=== PATIENT | male | born 1940 | race Caucasian/White ===

== ENCOUNTER 2018-09-11 08:14 | Day surgery (SDC) | payer OTHER, MEDICARE ==
[~2018-09-11 08:14] MED LIST: ACET500 PO; ALBU90OI INH; ASCO500 PO; Aqua Care71 GM TOP; CALCA400CH PO; CALCIUM 500 +1 EAC3 PO; CHOL10002 PO; CYAN500 PO; DOFE250 PO; DULO60 PO; Desyrel150 MG PO; ELIQUIS5 MG PO; FERROUS SULFATE PO; FISH OIL 1,0001 EAC1 PO; GABA600 PO; HYDCHL12.5 PO; HYDSUL200 PO; LEFL20 PO; LEVSOD50 PO; LOSA50 PO; METO50ER PO; OXYB5 PO; OXYC10ER PO; Omeprazole20 M1 PO; POTCHL10ER PO; POTCHL20ER PO; SIMV10 PO; SPIR25 PO; STRIVERDI RESPIM4 GM INH; SULF500A PO; THIA100 PO; TRIA15CR3 TOP; XARELTO15 MG PO
--- NOTE | 2018-09-11 08:59 | NUR ---
History, Chart, Medications and Allergies reviewed before start of procedure. Lungs clear T/O to Auscultation. Patient confirms NPO status and agrees with scheduled surgery. Patient states colon prep results clear. Patient States Post-Procedure ride home has been arranged.
--- NOTE | 2018-09-11 09:27 | NUR ---
09/11/18 0927 Lance Shay Bite Block Placed3-LEAD EKG REVIEWED WITH PHYSICIAN PRIOR TO START OF PROCEDURE.Patient to ENDO 1History, Chart, Medications and Allergies reviewed before start of procedure.MONITOR INTACT WITH CONTINUOUS PULSE OXIMETRY AND INTERMITTENT BP. O2 VIA N/C INTACT THROUGHOUT SEDATION/PROCEDURE.See Anesthesia record.
--- NOTE | 2018-09-11 12:04 | NUR ---
Discharge instructions reviewed with patient. Patient verbalizes understanding. Copy given to patient to take home. Patient States Post-Procedure ride home has been arranged. Discharged via wheelchair to private car for ride home.
== END 2018-09-11 23:35 | disposition home or self-care (01) ==
LOC: ORSCMMR 08:14 → ORD 10:00 → ORSCMMR 23:35
PROVIDERS: Internal Medicine Gastroenterology
PROC: 0DBE8ZX Excision of Large Intestine, Via Natural or Artificial Opening Endoscopic, Diagnostic (ICD-10-PCS; principal; 2018-09-11 10:00)
PROC: 0DBL8ZX Excision of Transverse Colon, Via Natural or Artificial Opening Endoscopic, Diagnostic (ICD-10-PCS; principal; 2018-09-11 10:00)
PROC: 0DB98ZX Excision of Duodenum, Via Natural or Artificial Opening Endoscopic, Diagnostic (ICD-10-PCS; principal; 2018-09-11 10:00)
DX: K62.5 Hemorrhage of anus and rectum (principal); K92.1 Melena; R11.0 Nausea; K31.9 Disease of stomach and duodenum, unspecified; D12.3 Benign neoplasm of transverse colon; K31.7 Polyp of stomach and duodenum; K22.8 Other specified diseases of esophagus; K44.9 Diaphragmatic hernia without obstruction or gangrene; Z86.010 Personal history of colon polyps; K57.30 Diverticulosis of large intestine without perforation or abscess without bleeding; K64.4 Residual hemorrhoidal skin tags; K64.8 Other hemorrhoids; I10 Essential (primary) hypertension; I48.91 Unspecified atrial fibrillation; Z79.01 Long term (current) use of anticoagulants; J44.9 Chronic obstructive pulmonary disease, unspecified; Z86.73 Personal history of transient ischemic attack (TIA), and cerebral infarction without residual deficits; Z79.899 Other long term (current) drug therapy
CPT/HCPCS: 88305; 88342; J1980; J7120

== ENCOUNTER 2018-10-04 14:33 | Observation (INO) | payer MEDICARE ==
[~2018-10-04] VITALS: Ht 175.3 cm; Wt 76.1 kg
[2018-10-04 15:36] LABS: BASOPHILS ABSOLUTE AUTO 0.12 K/mm3 (0.00-0.23); BASOPHILS PERCENT AUTO 1 % (0-2); EOSINOPHILS ABSOLUTE AUTO 0.16 K/mm3 (0.00-0.68); EOSINOPHILS PERCENT AUTO 1 % (0-6); Hematocrit 47.1 % (37.0-53.0); Hemoglobin 14.8 g/dL (13.5-17.5); IMMATURE GRAN ABSOLUTE AUTO 0.05 K/mm3 (0.00-0.10); IMMATURE GRAN PERCENT AUTO 0 % (0-1); LYMPHOCYTES ABSOLUTE AUTO 1.38 K/mm3 (0.84-5.20); LYMPHOCYTES PERCENT AUTO 10 % (21-46); MONOCYTES ABSOLUTE AUTO 1.58 K/mm3 (0.16-1.47); MONOCYTES PERCENT AUTO 12 % (4-13); Mean Corpuscular HGB 32.5 pg (26.0-34.0); Mean Corpuscular HGB Conc 31.4 g/dL (31.5-36.5); Mean Corpuscular Volume 103 fL (80-100); NEUTROPHILS ABSOLUTE AUTO 10.31 K/mm3 (1.96-9.15); NEUTROPHILS PERCENT AUTO 76 % (41-73); Platelet Count 125 K/mm3 (150-400); RDW Coefficient Variation 13.7 % (11.7-14.2); RDW Standard Deviation 52.7 fL (35.1-46.3); Red Blood Cell Count 4.56 M/mm3 (4.30-5.90)
[2018-10-04 15:48] LABS: Troponin I <0.015 ng/mL (0.000-0.040)
[2018-10-04] MEDS ORDERED: GABA300 PO (15:59)
[2018-10-04] MEDS ORDERED: OMEPRAZOLE MAGN20 MG PO (16:00)
[2018-10-04] MEDS ORDERED: XARELTO15 MG PO (16:01)
[2018-10-04] MEDS ORDERED: SILD50TA PO (16:02)
[2018-10-04 16:22] LABS: Alanine Aminotransfer (ALT/SGP 41 U/L (12-78); Albumin, Blood 4.1 g/dL (3.4-5.0); Albumin/Globulin Ratio 1.1 (0.8-1.8); Alk Phos 114 U/L (50-136); Anion Gap 9 mmol/L (6-16); Aspartate Aminotrans (AST/SGOT 52 U/L (12-37); Bilirubin, Total 1.6 mg/dL (0.1-1.0); Blood Urea Nitrogen 22 mg/dL (8-24); Bun/Creatinine Ratio 20.2 (12.0-20.0); CO2, Blood 24 mmol/L (21-32); Calcium, Blood 8.6 mg/dL (8.5-10.1); Chloride, Blood 105 mmol/L (98-108); Creatinine, Blood 1.09 mg/dL (0.60-1.20); Globulin, Blood 3.9 g/dL (2.2-4.0); Glomerular Filtration Rate >60 (60-); Glucose, Blood 86 mg/dL (70-99); Potassium, Blood 3.8 mmol/L (3.5-5.5); Sodium, Blood 138 mmol/L (136-145)
--- NOTE | 2018-10-05 00:54 | NUR ---
IV SITE PT HAS IV TO R FA, 20 GA THAT PLACEMENT WAS NOT DOCUMENTED. WNL
--- NOTE | 2018-10-05 06:37 | NUR ---
SHIFT SUMMARY PT ADMITTED FOR CHEST PAIN. FULL CODE. NPO EXCEPT MEDS AND ICE CHIPS. BEDREST. TELE A-FIB, PVC AT A RATE OF 88 PER STACKER AND SORTER OPERATOR. PT NOTED TO HAVE 1 6 BEAT RUN OF V-TACH JUST NOW. ANTHONY, CALLED TO GET LOVENOX DC'D. 18G IV TO L AC AND 20 G IV TO R HAND. MEDS WHOLE. 2 L O2 NC NOT HIS BASELINE. PACEMAKER-BIOMETRIC INTEROGATOR. HISTORY OF A-FIB AND SICK SINUS SYNDROME. HX OF HIATAL HERNIA WITH CT SCAN SHOWEING WORSENING PER REPORT. BP RUNS LOW. 1 PERSON STANDBY ASSIST WITH CANE. PT CONT TO HAVE C/O MENDEZ AND CP THAT THE PT SAID DID NOT IMPROVE OR WORSEN SO FAR THIS SHIFT. PT DID APPEAR TO SLEEP COMFORTABLY FOLLOWING ADMINISTRATION OF NIGHT MEDICATIONS. NO APPARENT SIGNS OF ACUTE DISTRESS. ABLE TO MAKE NEEDS KNOWN AND CALL LIGHT IN REACH.
[2018-10-05 10:22] LABS: Bun/Creatinine Ratio 18.3 (12.0-20.0); Calcium, Blood 8.3 mg/dL (8.5-10.1); Creatinine, Blood 1.26 mg/dL (0.60-1.20); Potassium, Blood 3.2 mmol/L (3.5-5.5)
[2018-10-05 10:53] LABS: BASOPHILS ABSOLUTE AUTO 0.07 K/mm3 (0.00-0.23); BASOPHILS PERCENT AUTO 1 % (0-2); EOSINOPHILS ABSOLUTE AUTO 0.07 K/mm3 (0.00-0.68); EOSINOPHILS PERCENT AUTO 1 % (0-6); Hematocrit 37.4 % (37.0-53.0); IMMATURE GRAN ABSOLUTE AUTO 0.03 K/mm3 (0.00-0.10); IMMATURE GRAN PERCENT AUTO 0 % (0-1); LYMPHOCYTES ABSOLUTE AUTO 1.45 K/mm3 (0.84-5.20); LYMPHOCYTES PERCENT AUTO 21 % (21-46); MONOCYTES ABSOLUTE AUTO 1.01 K/mm3 (0.16-1.47); MONOCYTES PERCENT AUTO 14 % (4-13); Mean Corpuscular HGB 31.7 pg (26.0-34.0); Mean Corpuscular HGB Conc 32.1 g/dL (31.5-36.5); Mean Platelet Volume 12.9 fL (9.1-12.4); NEUTROPHILS ABSOLUTE AUTO 4.43 K/mm3 (1.96-9.15); NEUTROPHILS PERCENT AUTO 63 % (41-73); Platelet Count 90 K/mm3 (150-400); RDW Coefficient Variation 13.6 % (11.7-14.2); RDW Standard Deviation 49.4 fL (35.1-46.3); Red Blood Cell Count 3.79 M/mm3 (4.30-5.90); White Blood Cell Count 7.06 K/mm3 (4.00-11.30)
[2018-10-05 11:06] LABS: Mean Corpuscular Volume 99 fL (80-100)
--- NOTE | 2018-10-05 13:31 | NUR ---
Pt gave consent for care to nursing information systems coordinator Sydni Kim for 10/06/18.
--- NOTE | 2018-10-05 13:59 | NUR ---
PATIENT GAVE THIS STUDENT NURSE PERMISSION TO VIEW CHART AND PARTICIPATE IN THEIR CARE
--- NOTE | 2018-10-05 18:20 | NUR ---
SUMMARY PT SITTIN UP IN BED EATING HIS DINNER, SPOUSE IS AT THE BEDSIDE, PT HAD THE RESTING PORTION OF THE STRESS TEST TODAY AND WILL HAVE THE STRESS PORTION TOMORROW, PT HAS BEEN MED PER EMAR FOR PAIN, PT IS INDEPENDENT IN THE ROOM, PLEASANT AND COOPERATIVE WITH CARE, VSS, NO ACUTE CHANGES, WILL CONT TO MONITOR
--- NOTE | 2018-10-05 22:38 | NUR ---
10/05/182054 RECHECKED BP PRIOR BP WAS LOW PER PROFESSOR OF POLITICAL SCIENCE. BP 104/80 NOW.
[2018-10-06 05:47] LABS: Anion Gap 10 mmol/L (6-16); Blood Urea Nitrogen 32 mg/dL (8-24); Bun/Creatinine Ratio 17.4 (12.0-20.0); CO2, Blood 25 mmol/L (21-32); Calcium, Blood 8.2 mg/dL (8.5-10.1); Chloride, Blood 104 mmol/L (98-108); Creatinine, Blood 1.84 mg/dL (0.60-1.20); Glomerular Filtration Rate 38 (60-); Glucose, Blood 97 mg/dL (70-99); Phosphorus, Blood 2.8 mg/dL (2.5-4.9); Potassium, Blood 3.2 mmol/L (3.5-5.5); Sodium, Blood 139 mmol/L (136-145)
--- NOTE | 2018-10-06 07:27 | NUR ---
10/06/18 0615 VITALS STABLE THIS AM. MEDICATED FOR PAIN IN HEAD, NECK, CHEST AND BACK THIS SHIFT. STATES HE HAS CHRONIC DISCOMFORT. SLEPT FAIRLY WELL THIS SHIFT.
--- NOTE | 2018-10-06 18:37 | NUR ---
SUMMARY PT IS A/O X4, PLEASANT AFFECT. HE HAS BEEN HAVING ONGOING CHEST, L JAW, BACK & H/A. HX CHR AFIB, SSS-PACEMAKER. HE IS HAD 2ND PORTION STRESS TEST THIS AFTERNOON. DR HAMPTON STATE WILL HAVE COMPLETE RESULTS OF TEST IN AM & REVIEW WITH PT/, WILL MX PT OVERNITE. TELE HAS BEEN PACED WITH UNDERLYING AFIB 60'S-70'S. HAVE GIVEN OXYCODONE & TYLENOL FOR PAIN RELIEF/CONTROL. K+ LOW 3.2, ORDER INCREASE IN SUPPLEMENT & STOP HCTZ. GFR 38, DR GIVE 500 ML NS @ 75 ML/HR.
--- NOTE | 2018-10-07 02:12 | NUR ---
ASSUMED CARE OF PATIENT AT APPROXIMATELY [address] RN. PATIENT ALERT AND ORIENTED X4; PATIENT REPORTS HEADACHE AT SHIFT CHANGE; REQUESTS TYELONOL AND OXYCODONE; PATIENT ASLEEP AFTERWARDS. PATIENT DENIES NUMBNESS, TINGLING, DIZZINESS OR NAUSEA. 100% PACED W/ AFIB W/ MISSED SENSING ON TELE; OXYGEN SATURATION ABOVE 90% ON 2LPM VIA NC (PRN). BAG OF NS AT 75 INFUSED. PIV S/L. PATIENT SBA TO BATHROOM. PATIENT CURRENTLY SLEEPING IN BED; CALL LIGHT IN REACH; BED IN LOWEST POSISITON; WILL CONTINUE TO MONITOR AND ASSESS UNTIL END OF SHIFT.
[2018-10-07 05:23] LABS: BASOPHILS ABSOLUTE AUTO 0.07 K/mm3 (0.00-0.23); BASOPHILS PERCENT AUTO 1 % (0-2); EOSINOPHILS ABSOLUTE AUTO 0.35 K/mm3 (0.00-0.68); EOSINOPHILS PERCENT AUTO 7 % (0-6); Hematocrit 34.3 % (37.0-53.0); IMMATURE GRAN ABSOLUTE AUTO 0.02 K/mm3 (0.00-0.10); IMMATURE GRAN PERCENT AUTO 0 % (0-1); LYMPHOCYTES ABSOLUTE AUTO 1.46 K/mm3 (0.84-5.20); LYMPHOCYTES PERCENT AUTO 29 % (21-46); MONOCYTES PERCENT AUTO 16 % (4-13); Mean Corpuscular HGB 31.9 pg (26.0-34.0); Mean Corpuscular HGB Conc 32.1 g/dL (31.5-36.5); Mean Corpuscular Volume 99 fL (80-100); Mean Platelet Volume 12.7 fL (9.1-12.4); NEUTROPHILS ABSOLUTE AUTO 2.29 K/mm3 (1.96-9.15); NEUTROPHILS PERCENT AUTO 46 % (41-73); Platelet Count 86 K/mm3 (150-400); RDW Coefficient Variation 13.7 % (11.7-14.2); RDW Standard Deviation 49.9 fL (35.1-46.3); Red Blood Cell Count 3.45 M/mm3 (4.30-5.90); White Blood Cell Count 4.99 K/mm3 (4.00-11.30)
[2018-10-07 06:04] LABS: Albumin, Blood 2.9 g/dL (3.4-5.0); Anion Gap 8 mmol/L (6-16); Blood Urea Nitrogen 32 mg/dL (8-24); Bun/Creatinine Ratio 20.1 (12.0-20.0); CO2, Blood 25 mmol/L (21-32); Calcium, Blood 8.5 mg/dL (8.5-10.1); Chloride, Blood 105 mmol/L (98-108); Creatinine, Blood 1.59 mg/dL (0.60-1.20); Glomerular Filtration Rate 45 (60-); Glucose, Blood 86 mg/dL (70-99); Phosphorus, Blood 3.4 mg/dL (2.5-4.9); Potassium, Blood 3.8 mmol/L (3.5-5.5); Sodium, Blood 138 mmol/L (136-145)
--- NOTE | 2018-10-07 06:26 | NUR ---
NO ACUTE CHANGES TO REPORT. PATIENT SLEPT ABOUT SEVEN HOURS LAST NIGHT. WILL CONTINUE TO MONITOR AND ASSESS UNTIL END OF SHIFT.
--- NOTE | 2018-10-07 12:10 | NUR ---
DEVICE INTERROGATION DONE PER ORDER TO EVALUATE VENTRICULAR SENSING.EGM SHOWS VENTRICULAR PACED WITH TRIGEMINAL PVC'S. ADEQUATE BATTERY STATUS. NORMAL VENTRICULAR CAPTURE. NO R WAVE AT VVI RATE 30 BPM AND AUTO SENSITIVITY. CAPTURE THRESHOLD 1.3V@.4MS. HISTOGRAMS SHOW Tin Stacker 64%.VENTRICULAR HIGH RATE EPISODES:5. PROGRAMMING CHANGES MADE WITH [employer] REP SUPPORT. VENTRICULAR SENSITIVITY FROM "AUTO" TO 2.5mV. VENTRICULAR AMPLITUDE TO 4.0V. REUTRNED WITH JERRY JIMENEZ AT 1315 FOR FURTHER INTERROGATION. R WAVE 1.6mV. PROGRAMMED VENTRICULAR SENSITIVITY TO 0.5Mv. EGM SHOWS VENTRICULAR SENSING RATE 65-90 BPM IN ATRIAL FIB WITH OCCASIONAL PVC'S.
[2018-10-07 12:25] LABS: PCO2 Arterial 39.6 mmHg (35-45); PO2 Arterial 82.5 mmHg (80-100); pH Blood Arterial 7.39 (7.35-7.45)
--- NOTE | 2018-10-07 17:52 | NUR ---
PATIENT HAS HAD NO COMPLAINTS THIS SHIFT. HE IS PLEASANT AND COOPERATIVE WITH ALL CARES. HE IS ABLE TO ALBULATE TO THE RESTROOM WITH NO ASSISTANCE. NO ISSUES THIS SHIFT.
--- NOTE | 2018-10-08 03:34 | NUR ---
SHIFT SUMMARY NO APPARENT ACUTE CHANGES NOTED FOR PT SO FAR THIS SHIFT. THE PT IS TO HAVE A PACEMAKER IMPLANT F/U DEVICE CHECKS NOTED FAILURE TO CAPTURE, MISFIRING PACEMAKER COMPLICATIONS. PACER F/U WITH REPORGRAMMING-DUAL. THE PT IS READY TO GO HOME AND IS HOPING TO BE ABLE TO GET SOME ANSWERS AND ABLE TO DISCHARGE TODAY. NO C/O CP SO FAR THIS SHIFT. THAT PT HAS APPEARED TO SLEEP COMFORTABLY THROUGHOUT THE NIGHT WITH NO COMPLAINTS AND NO APPARENT SIGNS OF ACUTE DISTRESS. ABLE TO MAKE NEEDS KNOWN AND CALL LIGHT IN REACH.
[2018-10-08 05:24] LABS: BASOPHILS ABSOLUTE AUTO 0.08 K/mm3 (0.00-0.23); BASOPHILS PERCENT AUTO 2 % (0-2); EOSINOPHILS ABSOLUTE AUTO 0.33 K/mm3 (0.00-0.68); EOSINOPHILS PERCENT AUTO 6 % (0-6); Hematocrit 35.4 % (37.0-53.0); Hemoglobin 11.2 g/dL (13.5-17.5); IMMATURE GRAN ABSOLUTE AUTO 0.02 K/mm3 (0.00-0.10); IMMATURE GRAN PERCENT AUTO 0 % (0-1); LYMPHOCYTES PERCENT AUTO 26 % (21-46); MONOCYTES ABSOLUTE AUTO 0.75 K/mm3 (0.16-1.47); MONOCYTES PERCENT AUTO 14 % (4-13); Mean Corpuscular HGB 31.7 pg (26.0-34.0); Mean Corpuscular HGB Conc 31.6 g/dL (31.5-36.5); Mean Corpuscular Volume 100 fL (80-100); Mean Platelet Volume 12.5 fL (9.1-12.4); NEUTROPHILS ABSOLUTE AUTO 2.72 K/mm3 (1.96-9.15); NEUTROPHILS PERCENT AUTO 51 % (41-73); Platelet Count 104 K/mm3 (150-400); RDW Coefficient Variation 13.8 % (11.7-14.2); RDW Standard Deviation 50.5 fL (35.1-46.3); Red Blood Cell Count 3.53 M/mm3 (4.30-5.90)
[2018-10-08 06:00] LABS: Anion Gap 8 mmol/L (6-16); Blood Urea Nitrogen 29 mg/dL (8-24); Bun/Creatinine Ratio 21.5 (12.0-20.0); CO2, Blood 25 mmol/L (21-32); Calcium, Blood 8.8 mg/dL (8.5-10.1); Chloride, Blood 113 mmol/L (98-108); Creatinine, Blood 1.35 mg/dL (0.60-1.20); Glomerular Filtration Rate 55 (60-); Glucose, Blood 89 mg/dL (70-99); Potassium, Blood 3.9 mmol/L (3.5-5.5); Sodium, Blood 146 mmol/L (136-145)
== END 2018-10-08 18:30 | disposition home or self-care (01) ==
LOC: ER 14:33 → MEDS 14:34
PROVIDERS: Emergency Medicine; Internal Medicine; ADMIT Hospitalist
DX: R07.89 Other chest pain (principal); I48.91 Unspecified atrial fibrillation; T82.119A Breakdown (mechanical) of unspecified cardiac electronic device, initial encounter; E03.9 Hypothyroidism, unspecified; I10 Essential (primary) hypertension; F32.9 Major depressive disorder, single episode, unspecified; J44.9 Chronic obstructive pulmonary disease, unspecified; K44.9 Diaphragmatic hernia without obstruction or gangrene; E87.6 Hypokalemia; N28.9 Disorder of kidney and ureter, unspecified; K21.9 Gastro-esophageal reflux disease without esophagitis; I95.9 Hypotension, unspecified; Z87.891 Personal history of nicotine dependence; Z88.0 Allergy status to penicillin; Z88.4 Allergy status to anesthetic agent; Z79.899 Other long term (current) drug therapy
CPT/HCPCS: 36415; 36600; 71046; 71275; 74175; 78452; 80048; 80053; 80069; 82803; 83735; 83880; 84484; 85025; 85651; 93005; 93010; 93017; 93280; 94640; 94760; 94761; 96360; 96361; 99285-25; A9500; G0378; J0706; J2785; J7030; J7040; Q9967

== ENCOUNTER 2019-11-10 20:27 | Emergency (ER) | payer OTHER, MEDICARE ==
[~2019-11-10] VITALS: Ht 175.3 cm; Wt 83.9 kg
[~2019-11-10 20:27] MED LIST changes: +GABA300 PO; +OMEPRAZOLE MAGN20 MG PO; +SILD50TA PO
[2019-11-10 20:43] LABS: BASOPHILS ABSOLUTE AUTO 0.09 K/mm3 (0.00-0.23); BASOPHILS PERCENT AUTO 1 % (0-2); EOSINOPHILS ABSOLUTE AUTO 0.38 K/mm3 (0.00-0.68); EOSINOPHILS PERCENT AUTO 5 % (0-6); Hematocrit 41.9 % (37.0-53.0); IMMATURE GRAN ABSOLUTE AUTO 0.02 K/mm3 (0.00-0.10); IMMATURE GRAN PERCENT AUTO 0 % (0-1); LYMPHOCYTES ABSOLUTE AUTO 1.98 K/mm3 (0.84-5.20); LYMPHOCYTES PERCENT AUTO 24 % (21-46); MONOCYTES PERCENT AUTO 15 % (4-13); Mean Corpuscular Volume 100 fL (80-100); Mean Platelet Volume 11.2 fL (9.1-12.4); NEUTROPHILS ABSOLUTE AUTO 4.55 K/mm3 (1.96-9.15); NEUTROPHILS PERCENT AUTO 55 % (41-73); Platelet Count 184 K/mm3 (150-400); RDW Coefficient Variation 14.2 % (11.7-14.2); RDW Standard Deviation 52.2 fL (35.1-46.3); Red Blood Cell Count 4.19 M/mm3 (4.30-5.90); White Blood Cell Count 8.22 K/mm3 (4.00-11.30)
[2019-11-10 21:04] LABS: Alanine Aminotransfer (ALT/SGP 16 U/L (12-78); Albumin, Blood 3.8 g/dL (3.4-5.0); Albumin/Globulin Ratio 1.2 (0.8-1.8); Alk Phos 132 U/L (50-136); Anion Gap 1 mmol/L (6-16); Aspartate Aminotrans (AST/SGOT 23 U/L (12-37); Bilirubin, Total 0.5 mg/dL (0.1-1.0); Blood Urea Nitrogen 31 mg/dL (8-24); Bun/Creatinine Ratio 15.7 (12.0-20.0); CO2, Blood 29 mmol/L (21-32); Calcium, Blood 8.8 mg/dL (8.5-10.1); Chloride, Blood 109 mmol/L (98-108); Creatinine, Blood 1.98 mg/dL (0.60-1.20); Globulin, Blood 3.2 g/dL (2.2-4.0); Glomerular Filtration Rate 35 (60-); Glucose, Blood 59 mg/dL (70-99); Potassium, Blood 4.5 mmol/L (3.5-5.5); Sodium, Blood 139 mmol/L (136-145); Troponin I <0.015 ng/mL (0.000-0.040)
[2019-11-11] MEDS ORDERED: Carbidopa-Levo1 EACH (00:20)
[2019-11-11] MEDS ORDERED: ARANESP (00:21)
== END 2019-11-11 03:09 | disposition home or self-care (01) ==
LOC: ER 20:27
PROVIDERS: Physician Assistant
DX: R07.9 Chest pain, unspecified (principal); I48.91 Unspecified atrial fibrillation; J44.9 Chronic obstructive pulmonary disease, unspecified; K21.9 Gastro-esophageal reflux disease without esophagitis; Z88.8 Allergy status to other drugs, medicaments and biological substances; Z88.0 Allergy status to penicillin; Z79.899 Other long term (current) drug therapy; Z79.51 Long term (current) use of inhaled steroids; Z87.891 Personal history of nicotine dependence
CPT/HCPCS: 36415; 71046; 80053; 84484; 85025; 93005; 93010; 99285-25

== ENCOUNTER 2021-08-23 14:27 | Emergency (ER) | payer OTHER ==
[~2021-08-23] VITALS: Ht 175.3 cm; Wt 81.7 kg
[~2021-08-23 14:27] MED LIST changes: +ARANESP; +Carbidopa-Levo1 EACH
[2021-08-23 15:36] LABS: BASOPHILS ABSOLUTE AUTO 0.05 K/mm3 (0.00-0.23); BASOPHILS PERCENT AUTO 1 % (0-2); EOSINOPHILS ABSOLUTE AUTO 0.08 K/mm3 (0.00-0.68); EOSINOPHILS PERCENT AUTO 1 % (0-6); Hemoglobin 14.1 g/dL (13.5-17.5); IMMATURE GRAN ABSOLUTE AUTO 0.01 K/mm3 (0.00-0.10); IMMATURE GRAN PERCENT AUTO 0 % (0-1); LYMPHOCYTES ABSOLUTE AUTO 1.25 K/mm3 (0.84-5.20); LYMPHOCYTES PERCENT AUTO 21 % (21-46); MONOCYTES ABSOLUTE AUTO 0.98 K/mm3 (0.16-1.47); MONOCYTES PERCENT AUTO 16 % (4-13); Mean Corpuscular HGB 29.6 pg (26.0-34.0); Mean Corpuscular HGB Conc 31.3 g/dL (31.5-36.5); Mean Corpuscular Volume 94 fL (80-100); Mean Platelet Volume 12.3 fL (9.1-12.4); NEUTROPHILS ABSOLUTE AUTO 3.62 K/mm3 (1.96-9.15); NEUTROPHILS PERCENT AUTO 60 % (41-73); Platelet Count 125 K/mm3 (150-400); RDW Coefficient Variation 14.7 % (11.7-14.2); RDW Standard Deviation 51.4 fL (35.1-46.3); Red Blood Cell Count 4.77 M/mm3 (4.30-5.90); White Blood Cell Count 5.99 K/mm3 (4.00-11.30)
[2021-08-23 16:00] LABS: Albumin, Blood 3.7 g/dL (3.4-5.0); Albumin/Globulin Ratio 1.3 (0.8-1.8); Bun/Creatinine Ratio 14.8 (12.0-20.0); Creatinine, Blood 1.42 mg/dL (0.60-1.20); Globulin, Blood 2.8 g/dL (2.2-4.0); Total Protein, Blood 6.5 g/dL (6.4-8.2)
== END 2021-08-23 19:45 | disposition home or self-care (01) ==
LOC: ER 14:27
PROVIDERS: Physician Assistant
DX: U07.1 COVID-19 (principal); I48.91 Unspecified atrial fibrillation; J44.9 Chronic obstructive pulmonary disease, unspecified; I10 Essential (primary) hypertension; Z88.0 Allergy status to penicillin; Z88.8 Allergy status to other drugs, medicaments and biological substances; Z79.899 Other long term (current) drug therapy; Z87.891 Personal history of nicotine dependence
CPT/HCPCS: 36415; 71046; 80053; 85025; 99285-25

== ENCOUNTER 2022-10-11 16:57 | Observation (INO) | payer OTHER ==
[~2022-10-11] VITALS: Ht 177.8 cm; Wt 77.6 kg
[2022-10-11 17:29] LABS: BASOPHILS PERCENT AUTO 2 % (0-2); EOSINOPHILS ABSOLUTE AUTO 0.55 K/mm3 (0.00-0.68); EOSINOPHILS PERCENT AUTO 10 % (0-6); Hematocrit 37.5 % (37.0-53.0); Hemoglobin 12.1 g/dL (13.5-17.5); IMMATURE GRAN ABSOLUTE AUTO 0.02 K/mm3 (0.00-0.10); IMMATURE GRAN PERCENT AUTO 0 % (0-1); LYMPHOCYTES ABSOLUTE AUTO 1.36 K/mm3 (0.84-5.20); LYMPHOCYTES PERCENT AUTO 25 % (21-46); MONOCYTES ABSOLUTE AUTO 0.86 K/mm3 (0.16-1.47); MONOCYTES PERCENT AUTO 16 % (4-13); Mean Corpuscular HGB 30.6 pg (26.0-34.0); Mean Corpuscular HGB Conc 32.3 g/dL (31.5-36.5); Mean Corpuscular Volume 95 fL (80-100); NEUTROPHILS ABSOLUTE AUTO 2.58 K/mm3 (1.96-9.15); NEUTROPHILS PERCENT AUTO 47 % (41-73); Platelet Count 146 K/mm3 (150-400); RDW Standard Deviation 51.8 fL (35.1-46.3); Red Blood Cell Count 3.95 M/mm3 (4.30-5.90); White Blood Cell Count 5.47 K/mm3 (4.00-11.30)
[2022-10-11 17:53] LABS: Albumin, Blood 3.6 g/dL (3.4-5.0); Albumin/Globulin Ratio 1.4 (0.8-1.8); Bilirubin, Total 0.9 mg/dL (0.1-1.0); Bun/Creatinine Ratio 14.3 (12.0-20.0); Calcium, Blood 9.4 mg/dL (8.5-10.1); Creatinine, Blood 1.26 mg/dL (0.60-1.20); Globulin, Blood 2.6 g/dL (2.2-4.0); Potassium, Blood 3.9 mmol/L (3.5-5.5); Total Protein, Blood 6.2 g/dL (6.4-8.2)
[2022-10-11 17:54] LABS: Source, Urine Clean Catch
[2022-10-11 17:58] LABS: Appearance, Urine Clear (Clear); Bilirubin, Urine Neg (Neg); Blood, Urine Neg (Neg); Color, Urine Yellow (P-Yellow); Glucose Qualitative, Urine Neg (Neg); Ketones, Urine Neg (Neg); Leukocyte Esterase, Urine 1+ (Neg); Nitrite, Urine Neg (Neg); Protein, Urine Neg (Neg); Urobilinogen, Urine NORM (Normal); pH, Urine 6.5 (5.0-8.0)
[2022-10-11 18:07] LABS: Bacteria Few /hpf; Red Blood Cells, Urine 0-2 /hpf (0-2); Squamous Epithelial Cells Rare /hpf (Few)
[2022-10-11] MEDS ORDERED: FAMO40 PO (20:27)
[2022-10-11] MEDS ORDERED: B-1100 M1 PO (20:27)
[2022-10-11] MEDS ORDERED: BUPR150ER PO (20:28)
[2022-10-11] MEDS ORDERED: ZADITOR5 M1 OP (20:30)
[2022-10-11] MEDS ORDERED: LIDO700A20 TOP (20:31)
[2022-10-11] MEDS ORDERED: CLOT10 MT (20:31)
[2022-10-11] MEDS ORDERED: FURO20 PO (20:39)
[2022-10-12 01:03] LABS: BASOPHILS ABSOLUTE AUTO 0.08 K/mm3 (0.00-0.23); BASOPHILS PERCENT AUTO 2 % (0-2); EOSINOPHILS ABSOLUTE AUTO 0.41 K/mm3 (0.00-0.68); EOSINOPHILS PERCENT AUTO 9 % (0-6); Hematocrit 36.8 % (37.0-53.0); Hemoglobin 11.7 g/dL (13.5-17.5); IMMATURE GRAN ABSOLUTE AUTO 0.01 K/mm3 (0.00-0.10); IMMATURE GRAN PERCENT AUTO 0 % (0-1); LYMPHOCYTES ABSOLUTE AUTO 1.31 K/mm3 (0.84-5.20); LYMPHOCYTES PERCENT AUTO 28 % (21-46); MONOCYTES ABSOLUTE AUTO 0.89 K/mm3 (0.16-1.47); MONOCYTES PERCENT AUTO 19 % (4-13); Mean Corpuscular HGB 30.1 pg (26.0-34.0); Mean Corpuscular HGB Conc 31.8 g/dL (31.5-36.5); Mean Corpuscular Volume 95 fL (80-100); Mean Platelet Volume 11.9 fL (9.1-12.4); NEUTROPHILS ABSOLUTE AUTO 2.03 K/mm3 (1.96-9.15); NEUTROPHILS PERCENT AUTO 43 % (41-73); Platelet Count 123 K/mm3 (150-400); RDW Coefficient Variation 14.9 % (11.7-14.2); RDW Standard Deviation 51.8 fL (35.1-46.3); Red Blood Cell Count 3.89 M/mm3 (4.30-5.90); White Blood Cell Count 4.73 K/mm3 (4.00-11.30)
[2022-10-12 01:18] LABS: Albumin, Blood 3.3 g/dL (3.4-5.0); Albumin/Globulin Ratio 1.3 (0.8-1.8); Bilirubin, Total 0.7 mg/dL (0.1-1.0); Calcium, Blood 8.9 mg/dL (8.5-10.1); Creatinine, Blood 1.43 mg/dL (0.60-1.20); Globulin, Blood 2.5 g/dL (2.2-4.0); Potassium, Blood 3.5 mmol/L (3.5-5.5); Total Protein, Blood 5.8 g/dL (6.4-8.2)
--- NOTE | 2022-10-12 06:28 | NUR ---
RECIEVED PATIENT FROM THE ED ALERT AND ORIENTED X4, COOPERATIVE WITH CARE. LUNGS DIM WITH CRACKLES OVER RLL. TRACE EDEMA TO BLE, ON TELE VENTRICULAR PACED AT 78 PER TECH, PULSES PALPABLE AND NO COMPLAINTS OF CHEST PAIN. HEADACHE AND LOWER BACK PAIN TREATED PER NOV. NPO, SIPS WITH MEDS OK. CONT AND AMBULATORY WITH CANE. LAC SL AND WNL. CUSTOMER SECURITY CLERK OTHER ISSUES TO REPORT.
[2022-10-12 09:42] LABS: CPK Creatine Kinase 52 U/L (39-308)
--- NOTE | 2022-10-12 16:25 | NUR ---
SHIFT SUMMARY PT AOX4, CALLS WELL. HE WAS SCHEDULED FOR A STRESS TEST TODAY BUT IT WAS RESCHEDULED AFTER CARDIAC CONSULT. DR. GONSALEZ SAID HE WILL RESCHEDULE IN THE MORNING AND TO PREP THE PT ACCORDINGLY. PT DID RECEIVE FOOD ONCE THE TEST WAS RESCHEDULED. HE AMBULATES IN THE ROOM WITH A CANE, HIS HAS BEEN AT THE BS MOST OF THE SHIFT. HE IS ON RA AND TAKES HIS MEDS WELL WITH WATER. HE HAD A REPEAT CT SCAN COMPLETE TODAY ALSO. WILL REPORT TO ONCOMING NURSE.
--- NOTE | 2022-10-13 05:33 | NUR ---
SENIOR REPORT DEVELOPER SUMMARY: A&Ox2-4 WITH EPISODIC CONFUSION, THOUGH EASILY DIRECTED. DOES NOT UTILIZE CALL LIGHT BUT WILL COME TO HALLWAY TO FIND STAFF MEMBERS. GOT TURNED AROUND WHILE GETTING UP TO USE THE BATHROOM LAST NIGHT AND WANDERED INTO THE [place]. IS VERY DISPLEASED WITH TELEMETRY BOX AND HAS ASKED IT BE REMOVED A COUPLE OF TIMES BUT IS AGREEABLE WHEN EXPLAINED IT IS TO MONITOR HIS HEART. HAS BEEN NPO SINCE MIDNIGHT IN ANTICIPATION OF STRESS TEST TODAY. TELE CAPTURED PAUSE @ 1941; A-FIB AND VENT-PACED. WILL REPORT TO ONCOMING RN.
[2022-10-13] MEDS ORDERED: CARBIDOPA-LEVO1 EA21 PO (13:34)
--- NOTE | 2022-10-13 14:25 | NUR ---
DISCHARGE NOTE PT DISCHARGED TO HOME WITH IV REMOVED. PT'S IS TRANSPORTING HIM AND HE WAS TAKEN TO HIS VEHICLE BY THE NURSE VIA WHEELCHAIR. PT WAS PROVIDED DISCHARGED INSTRUCTIONS AND EDUCATION. MEDICATIONS WERE FAXED TO THE PHARMACY OF HIS CHOICE.
== END 2022-10-13 14:18 | disposition home or self-care (01) ==
LOC: ER 16:57 → MEDS 19:14 → PCU 19:14 → MEDS 21:14
PROVIDERS: Emergency Medicine; ADMIT Internal Medicine
DX: I20.0 Unstable angina (principal); S06.5XAA Traumatic subdural hemorrhage with loss of consciousness status unknown, initial encounter; I48.0 Paroxysmal atrial fibrillation; J44.9 Chronic obstructive pulmonary disease, unspecified; F32.A Depression, unspecified; I10 Essential (primary) hypertension; E03.9 Hypothyroidism, unspecified; R51.9 Headache, unspecified; I49.5 Sick sinus syndrome; I27.20 Pulmonary hypertension, unspecified; I08.2 Rheumatic disorders of both aortic and tricuspid valves; Z88.0 Allergy status to penicillin; Z88.8 Allergy status to other drugs, medicaments and biological substances; Z79.01 Long term (current) use of anticoagulants; Z87.891 Personal history of nicotine dependence; X58.XXXA Exposure to other specified factors, initial encounter
CPT/HCPCS: 36415; 70450; 71045; 78452; 80053; 81001; 82550; 83880; 84484; 85025; 93005; 93010; 93017; 93306; 94640; 94664; 94760; 96374; 96375; 96376; 99285-25; A9270; A9500; G0378; J0706; J2405; J2785; J3010

== ENCOUNTER 2022-11-21 09:58 | Inpatient (IN) | payer OTHER ==
[~2022-11-21] VITALS: Ht 172.7 cm; Wt 82.5 kg
[~2022-11-21 09:58] MED LIST changes: +B-1100 M1 PO; +B-121000 MC3 PO; +BUPR150ER PO; -CALCA400CH PO; +CALCIUM CARBON650 MG PO; +CARBIDOPA-LEVO1 EA15 PO; -CHOL10002 PO; +CLOT10 MT; -CYAN500 PO; -Desyrel150 MG PO; +EUTHYROX50 MCG PO; +FAMO40 PO; -FERROUS SULFATE PO; +FERSU300 PO; +FURO20 PO; -LEVSOD50 PO; +LIDO700A20 TOP; +LOSA25 PO; -LOSA50 PO; +OMEP20ER PO; -OMEPRAZOLE MAGN20 MG PO; -OXYC10ER PO; +OXYC5 PO; -SIMV10 PO; +TRAZ50 PO; +VITAMIN D31000 UNI1 PO; +ZADITOR5 M1 BOTHEYES; +Zocor20 MG PO
[2022-11-21 10:44] LABS: Bicarbonate Venous 27.4 mmol/L (24.0-30.0); PCO2 Venous 53.7 mmHg (38-42); pH Blood Venous 7.36 (7.34-7.37)
[2022-11-21 10:47] LABS: BASOPHILS ABSOLUTE AUTO 0.09 K/mm3 (0.00-0.23); BASOPHILS PERCENT AUTO 1 % (0-2); EOSINOPHILS ABSOLUTE AUTO 0.43 K/mm3 (0.00-0.68); EOSINOPHILS PERCENT AUTO 6 % (0-6); Hematocrit 35.9 % (37.0-53.0); Hemoglobin 11.5 g/dL (13.5-17.5); IMMATURE GRAN ABSOLUTE AUTO 0.03 K/mm3 (0.00-0.10); IMMATURE GRAN PERCENT AUTO 0 % (0-1); LYMPHOCYTES ABSOLUTE AUTO 1.04 K/mm3 (0.84-5.20); LYMPHOCYTES PERCENT AUTO 13 % (21-46); MONOCYTES ABSOLUTE AUTO 1.19 K/mm3 (0.16-1.47); MONOCYTES PERCENT AUTO 15 % (4-13); Mean Corpuscular HGB 30.6 pg (26.0-34.0); Mean Corpuscular Volume 96 fL (80-100); Mean Platelet Volume 12.2 fL (9.1-12.4); NEUTROPHILS ABSOLUTE AUTO 4.99 K/mm3 (1.96-9.15); NEUTROPHILS PERCENT AUTO 64 % (41-73); Platelet Count 121 K/mm3 (150-400); RDW Coefficient Variation 15.3 % (11.7-14.2); RDW Standard Deviation 53.5 fL (35.1-46.3); Red Blood Cell Count 3.76 M/mm3 (4.30-5.90); White Blood Cell Count 7.77 K/mm3 (4.00-11.30)
[2022-11-21 10:50] LABS: Source, Urine Straight Cath
[2022-11-21 11:00] LABS: Bilirubin, Urine Neg (Neg); Blood, Urine Neg (Neg); Glucose Qualitative, Urine Neg (Neg); Ketones, Urine Neg (Neg); Leukocyte Esterase, Urine 1+ (Neg); Nitrite, Urine Neg (Neg); Protein, Urine Neg (Neg); Urobilinogen, Urine NORM (Normal)
[2022-11-21 11:12] LABS: Albumin, Blood 3.4 g/dL (3.4-5.0); Albumin/Globulin Ratio 1.2 (0.8-1.8); Bilirubin, Total 1.2 mg/dL (0.1-1.0); Bun/Creatinine Ratio 16.6 (12.0-20.0); Calcium, Blood 8.7 mg/dL (8.5-10.1); Creatinine, Blood 1.69 mg/dL (0.60-1.20); Globulin, Blood 2.9 g/dL (2.2-4.0); Total Protein, Blood 6.3 g/dL (6.4-8.2)
[2022-11-21 11:19] LABS: Appearance, Urine Clear (Clear); Color, Urine Yellow (P-Yellow)
[2022-11-21 11:23] LABS: Red Blood Cells, Urine Not Seen /hpf (0-2); Squamous Epithelial Cells Rare /hpf (Few); White Blood Cells, Urine 0-2 /hpf (0-5)
[2022-11-21 11:24] LABS: Bacteria Few /hpf
[2022-11-21 13:43] LABS: Base Excess Venous 4.3 mmol/L; Bicarbonate Venous 27.4 mmol/L (24.0-30.0); PCO2 Venous 52.2 mmHg (38-42); PO2 Venous 95.2 mmHg (38-42); pH Blood Venous 7.36 (7.34-7.37)
[2022-11-21 13:56] LABS: Influenza A, PCR NEGATIVE (NEGATIVE); Influenza B, PCR NEGATIVE (NEGATIVE); Resp Syncytial Virus, PCR NEGATIVE (NEGATIVE); SARS-Cov-2 (COVID-19) PCR, MMC NEGATIVE (NEGATIVE)
--- NOTE | 2022-11-21 17:55 | NUR ---
ER ADMIT. Patient admitted for respiratory failure, 2lpm oxygen, appears comfortable at this time. Unsteady with transfers, instructed pt to call for SBA to BR. Patient declined to have 2- RN skin check, educated on [employer] polices, pt verbalized understanding. BP soft, 1 more bolus needed to infuse. Pt lost IV access on admit. Will continue plan of care, overnight for observation.
[2022-11-21 18:01] LABS: Adenovirus Not Detected (NOT DETECT); Bordetella pertussis Not Detected (NOT DETECT); Chlamydophila pneumoniae Not Detected (NOT DETECT); Coronavirus 229E Not Detected (NOT DETECT); Coronavirus HKU1 Not Detected (NOT DETECT); Coronavirus NL63 Not Detected (NOT DETECT); Coronavirus OC43 Not Detected (NOT DETECT); Human Metapneumovirus Not Detected (NOT DETECT); Human Rhinovirus/Enterovirus Not Detected (NOT DETECT); Influenza A/2009-H1 Not Detected (NOT DETECT); Influenza A/H1 Not Detected (NOT DETECT); Influenza A/H3 Not Detected (NOT DETECT); Influenza B Not Detected (NOT DETECT); Mycoplasma pneumoniae Not Detected (NOT DETECT); Parainfluenza Virus 1 Not Detected (NOT DETECT); Parainfluenza Virus 2 Not Detected (NOT DETECT); Parainfluenza Virus 3 Not Detected (NOT DETECT); Parainfluenza Virus 4 Not Detected (NOT DETECT); Respiratory Syncytial Virus Not Detected (NOT DETECT); SARS-Cov-2 (COVID-19), BioFire Not Detected (NOT DETECT)
[2022-11-21] MEDS ORDERED: STIOLTO RESPIMAT4 G1 INH (19:53)
[2022-11-21] MEDS ORDERED: B-1100 M1 PO (19:54)
[2022-11-21] MEDS ORDERED: MACROBID 100 M100 MG PO (19:57)
[2022-11-21] MEDS ORDERED: ALBU2.5V5 INH (20:04)
[2022-11-22 04:54] LABS: Hematocrit 33.9 % (37.0-53.0); Hemoglobin 10.9 g/dL (13.5-17.5); Mean Corpuscular HGB 30.5 pg (26.0-34.0); Mean Corpuscular HGB Conc 32.2 g/dL (31.5-36.5); Mean Corpuscular Volume 95 fL (80-100); Mean Platelet Volume 12.2 fL (9.1-12.4); Platelet Count 108 K/mm3 (150-400); RDW Coefficient Variation 15.2 % (11.7-14.2); RDW Standard Deviation 52.5 fL (35.1-46.3); Red Blood Cell Count 3.57 M/mm3 (4.30-5.90); White Blood Cell Count 6.25 K/mm3 (4.00-11.30)
--- NOTE | 2022-11-22 05:05 | NUR ---
SHIFT NOTE PATIENT IS ALERT AND ORIENTED X4, PLEASANT, BUT UNCOOPERATIVE AT TIMES. REFUSED SKIN CHECK ONCE MORE, WHICH I BELIEVE IS MODESTY. I WAS ABLE TO GET A GOOD LOOK AT THE MAJORITY OF HIS SKIN WHICH LOOKED CDI. SOME HTN, BUT OTHERWISE VSS. 2L NC, GETS SOB WITH AMBULATION OR EVEN MOVEMENT IN BED, BREATHING TREATMENTS HELPED. TELE PACED HAO KEYES'S MD AWARE, NO NEW ORDERS. WILL CONT TO MONITOR.
[2022-11-22 05:12] LABS: Bun/Creatinine Ratio 19.9 (12.0-20.0); Calcium, Blood 8.4 mg/dL (8.5-10.1); Creatinine, Blood 1.46 mg/dL (0.60-1.20); Potassium, Blood 3.9 mmol/L (3.5-5.5)
[2022-11-22 05:20] LABS: BAND PERCENT MAN 2 % (0-8); BASOPHILS PERCENT MAN 0 % (0-2); EOSINOPHILS PERCENT MAN 0 % (0-6); LYMPHOCYTES ABSOLUTE MAN 0.62 K/mm3 (0.84-5.20); LYMPHOCYTES PERCENT MAN 10 % (21-46); MONOCYTES ABSOLUTE MAN 0.12 K/mm3 (0.16-1.47); MONOCYTES PERCENT MAN 2 % (4-13); SEG NEUTROPHILS PERCENT MAN 86 % (41-73); TOTAL CELLS COUNTED 100
--- NOTE | 2022-11-22 09:10 | NUR ---
Telemetry reported patients pacer is hitting at QRS, and possible interogation was needed. Hospitalist requested RN call cardiology for further instruction. Cardiology contacted, and agreed to come see patient.
--- NOTE | 2022-11-22 17:23 | NUR ---
This morning patient had a change in condition, reported severe MENDEZ, numbness in left arm, and difficulty breathing. STAT EKG done, vitals WNL, labs showed elevated BNP. CT & CXR resulted. ordered IV Lasix. Patient continues to report MENDEZ, face is pink/flushed. Pt will remain hospitalized, discharge held.
--- NOTE | 2022-11-23 04:43 | NUR ---
SHIFT SUMMARY PATIENT HAD NO ACUTE CHANGES. AXOX 4 AND ONE ASSIST TO BSC. PIV REMAINS INTACT. ON TELEMETRY PACED 77. ON 3L O2 NC AND RA BASELINE. RT IN FOR BREATHING TX. DENIES CHEST PAIN AND N/V. VSS/AFEBRILE. SLEPT MOST OF SHIFT. CALL LIGHT IN REACH. BED IN LOWEST POSITION. WILL CONTINUE TO MONITOR UNTIL DAY SHIFT NURSE ASSUMES CARE.
[2022-11-23 13:59] LABS: BASOPHILS ABSOLUTE AUTO 0.02 K/mm3 (0.00-0.23); BASOPHILS PERCENT AUTO 0 % (0-2); EOSINOPHILS PERCENT AUTO 0 % (0-6); Hematocrit 34.4 % (37.0-53.0); Hemoglobin 10.8 g/dL (13.5-17.5); IMMATURE GRAN ABSOLUTE AUTO 0.19 K/mm3 (0.00-0.10); IMMATURE GRAN PERCENT AUTO 1 % (0-1); LYMPHOCYTES ABSOLUTE AUTO 0.83 K/mm3 (0.84-5.20); LYMPHOCYTES PERCENT AUTO 4 % (21-46); MONOCYTES ABSOLUTE AUTO 0.61 K/mm3 (0.16-1.47); MONOCYTES PERCENT AUTO 3 % (4-13); Mean Corpuscular HGB 30.4 pg (26.0-34.0); Mean Corpuscular HGB Conc 31.4 g/dL (31.5-36.5); Mean Corpuscular Volume 97 fL (80-100); NEUTROPHILS ABSOLUTE AUTO 17.56 K/mm3 (1.96-9.15); NEUTROPHILS PERCENT AUTO 91 % (41-73); Platelet Count 139 K/mm3 (150-400); RDW Coefficient Variation 15.7 % (11.7-14.2); RDW Standard Deviation 55.1 fL (35.1-46.3); Red Blood Cell Count 3.55 M/mm3 (4.30-5.90); White Blood Cell Count 19.21 K/mm3 (4.00-11.30)
[2022-11-23 14:20] LABS: Albumin, Blood 3.7 g/dL (3.4-5.0); Anion Gap 6 mmol/L (6-16); Blood Urea Nitrogen 45 mg/dL (8-24); Bun/Creatinine Ratio 36.9 (12.0-20.0); CO2, Blood 29 mmol/L (21-32); Calcium, Blood 8.5 mg/dL (8.5-10.1); Chloride, Blood 103 mmol/L (98-108); Creatinine, Blood 1.22 mg/dL (0.60-1.20); Glomerular Filtration Rate 60 (60-); Glucose, Blood 197 mg/dL (70-99); Phosphorus, Blood 2.4 mg/dL (2.5-4.9); Potassium, Blood 3.8 mmol/L (3.5-5.5); Sodium, Blood 138 mmol/L (136-145)
--- NOTE | 2022-11-23 17:17 | NUR ---
DAYSHIFT SUMMARY This afternoon patient reported chest pain, MNEDEZ, & jaw pain. Patient reported when he feels like this he uses Nitro. Vitals taken, and nitro x2 given. Oxycodone also given for pain. PRNs effective. An hour later patient reporting the same pain again, he was holding his jaw, reporting severe pain. EKG done, the scan stated "possible pacemaker failure" reported event to hospitalist. Ativan given for anixety, PRN effective. Hospitalist requested Cardiology consult, Cardiology assessed patient. Vitals stable, will continue plan of care. No plans for discharge at this time.
--- NOTE | 2022-11-24 04:30 | NUR ---
SHIFT SUMMARY PATIENT HAD NO ACUTE CHANGES. AXOX 4 AND SBA TO BR. ON 2L O2 NC. TELE MONITOR PACED @ 77. DENIES CHEST PAIN, SOB, AND N/V. VSS/AFEBRILE. PIV REMAINS INTACT. RT IN FOR BREATHING TX. CALL LIGHT IN REACH. BED IN LOWEST POSITION. WILL CONTINUE TO MONITOR UNTIL DAY SHIFT NURSE ASSUMES CARE.
[2022-11-24 08:21] LABS: BASOPHILS ABSOLUTE AUTO 0.01 K/mm3 (0.00-0.23); BASOPHILS PERCENT AUTO 0 % (0-2); EOSINOPHILS PERCENT AUTO 0 % (0-6); Hematocrit 31.9 % (37.0-53.0); Hemoglobin 10.2 g/dL (13.5-17.5); IMMATURE GRAN ABSOLUTE AUTO 0.04 K/mm3 (0.00-0.10); IMMATURE GRAN PERCENT AUTO 0 % (0-1); LYMPHOCYTES ABSOLUTE AUTO 0.98 K/mm3 (0.84-5.20); LYMPHOCYTES PERCENT AUTO 10 % (21-46); MONOCYTES ABSOLUTE AUTO 0.84 K/mm3 (0.16-1.47); MONOCYTES PERCENT AUTO 8 % (4-13); Mean Corpuscular HGB 30.3 pg (26.0-34.0); Mean Corpuscular Volume 95 fL (80-100); Mean Platelet Volume 12.2 fL (9.1-12.4); NEUTROPHILS ABSOLUTE AUTO 8.37 K/mm3 (1.96-9.15); NEUTROPHILS PERCENT AUTO 82 % (41-73); Platelet Count 128 K/mm3 (150-400); RDW Coefficient Variation 15.7 % (11.7-14.2); RDW Standard Deviation 53.7 fL (35.1-46.3); Red Blood Cell Count 3.37 M/mm3 (4.30-5.90); White Blood Cell Count 10.24 K/mm3 (4.00-11.30)
[2022-11-24 08:37] LABS: Albumin, Blood 3.3 g/dL (3.4-5.0); Anion Gap 1 mmol/L (6-16); Blood Urea Nitrogen 40 mg/dL (8-24); Bun/Creatinine Ratio 35.7 (12.0-20.0); CO2, Blood 31 mmol/L (21-32); Calcium, Blood 8.7 mg/dL (8.5-10.1); Chloride, Blood 109 mmol/L (98-108); Creatinine, Blood 1.12 mg/dL (0.60-1.20); Glomerular Filtration Rate 66 (60-); Glucose, Blood 115 mg/dL (70-99); Potassium, Blood 3.7 mmol/L (3.5-5.5); Sodium, Blood 141 mmol/L (136-145)
[2022-11-24] MEDS ORDERED: NITR.4SL SL (12:06)
--- NOTE | 2022-11-24 13:58 | NUR ---
SHIFT SUMMARY PATIENT IS ALERT AND ORIENTED. PATIENT HAS NOT HAD ANY ACUTE EVENTS THIS SHIFT. VITAL SIGNS REVIEWED. PATIENT HAS COMPLAINED OF HEADACHE AND MEDICATED PER EMAR. PATIENT HAS NOT COMPLAINED OF NAUSEA, SOB OR VOMITTING THIS SHIFT. PATIENT IS BEING DISCHARGED HOME. IS TRANSPORTING PATIENT HOME.
== END 2022-11-24 13:00 | disposition home or self-care (01) | DRG 189 ==
LOC: ER 09:58 → MEDS 09:59 → ER 09:59 → MEDS 17:05
PROVIDERS: Physician Assistant; Student in an Organized Health Care Education/Training Program; ADMIT Family Medicine
DX: J96.21 Acute and chronic respiratory failure with hypoxia (principal); J44.1 Chronic obstructive pulmonary disease with (acute) exacerbation; I48.20 Chronic atrial fibrillation, unspecified; N17.9 Acute kidney failure, unspecified; Z20.822 Contact with and (suspected) exposure to COVID-19; J96.22 Acute and chronic respiratory failure with hypercapnia; F32.A Depression, unspecified; B34.9 Viral infection, unspecified; M19.90 Unspecified osteoarthritis, unspecified site; M47.812 Spondylosis without myelopathy or radiculopathy, cervical region; K22.89 Other specified disease of esophagus; M35.3 Polymyalgia rheumatica; K44.9 Diaphragmatic hernia without obstruction or gangrene; I12.9 Hypertensive chronic kidney disease with stage 1 through stage 4 chronic kidney disease, or unspecified chronic kidney disease; N18.30 Chronic kidney disease, stage 3 unspecified; D69.6 Thrombocytopenia, unspecified; D63.1 Anemia in chronic kidney disease; I34.0 Nonrheumatic mitral (valve) insufficiency; Z96.641 Presence of right artificial hip joint; Z28.21 Immunization not carried out because of patient refusal; Z98.890 Other specified postprocedural states; Z87.891 Personal history of nicotine dependence; Z95.0 Presence of cardiac pacemaker; Z98.84 Bariatric surgery status; Z88.0 Allergy status to penicillin; Z88.4 Allergy status to anesthetic agent; Z88.8 Allergy status to other drugs, medicaments and biological substances; Z79.890 Hormone replacement therapy; Z79.01 Long term (current) use of anticoagulants; Z79.899 Other long term (current) drug therapy
CPT/HCPCS: 0202U; 0241U; 36415; 70450; 71045; 71046; 80048; 80053; 80069; 81001; 82803; 83735; 83880; 84145; 84484; 85025; 93005; 93010; 93308; 93321; 94640; 94644; 94645; 94664; 94760; 94761; 96374; 96375; 96376; 99285-25; A9270; G0378; J1940; J2060; J2765; J2930; J3010; J7030; J7512

== ENCOUNTER 2022-12-31 14:32 | Emergency (ER) | payer OTHER ==
[~2022-12-31] VITALS: Ht 175.3 cm; Wt 81.7 kg
[~2022-12-31 14:32] MED LIST changes: +ALBU2.5V5 INH; +MACROBID 100 M100 MG PO; +NITR.4SL SL; +STIOLTO RESPIMAT4 G1 INH
[2022-12-31 15:16] LABS: BASOPHILS ABSOLUTE AUTO 0.08 K/mm3 (0.00-0.23); BASOPHILS PERCENT AUTO 2 % (0-2); EOSINOPHILS PERCENT AUTO 4 % (0-6); Hematocrit 32.7 % (37.0-53.0); Hemoglobin 10.2 g/dL (13.5-17.5); IMMATURE GRAN ABSOLUTE AUTO 0.04 K/mm3 (0.00-0.10); IMMATURE GRAN PERCENT AUTO 1 % (0-1); LYMPHOCYTES ABSOLUTE AUTO 1.22 K/mm3 (0.84-5.20); LYMPHOCYTES PERCENT AUTO 23 % (21-46); MONOCYTES ABSOLUTE AUTO 1.06 K/mm3 (0.16-1.47); MONOCYTES PERCENT AUTO 20 % (4-13); Mean Corpuscular HGB 29.7 pg (26.0-34.0); Mean Corpuscular HGB Conc 31.2 g/dL (31.5-36.5); Mean Corpuscular Volume 95 fL (80-100); Mean Platelet Volume 11.1 fL (9.1-12.4); NEUTROPHILS ABSOLUTE AUTO 2.78 K/mm3 (1.96-9.15); NEUTROPHILS PERCENT AUTO 52 % (41-73); Platelet Count 204 K/mm3 (150-400); RDW Coefficient Variation 15.2 % (11.7-14.2); RDW Standard Deviation 52.9 fL (35.1-46.3); Red Blood Cell Count 3.43 M/mm3 (4.30-5.90); White Blood Cell Count 5.38 K/mm3 (4.00-11.30)
[2022-12-31 15:40] LABS: Albumin/Globulin Ratio 0.9 (0.8-1.8); Bilirubin, Total 0.7 mg/dL (0.1-1.0); Bun/Creatinine Ratio 14.3 (12.0-20.0); Calcium, Blood 8.8 mg/dL (8.5-10.1); Creatinine, Blood 1.4 mg/dL (0.60-1.20); Globulin, Blood 3.2 g/dL (2.2-4.0); Potassium, Blood 4.6 mmol/L (3.5-5.5); Total Protein, Blood 6.2 g/dL (6.4-8.2)
[2022-12-31 18:15] VITALS: BP 103/65
== END 2022-12-31 18:25 | disposition home or self-care (01) ==
LOC: ER 14:32
PROVIDERS: Emergency Medicine
DX: S00.83XA Contusion of other part of head, initial encounter (principal); J44.9 Chronic obstructive pulmonary disease, unspecified; E87.8 Other disorders of electrolyte and fluid balance, not elsewhere classified; W18.30XA Fall on same level, unspecified, initial encounter; Z88.0 Allergy status to penicillin; Z88.8 Allergy status to other drugs, medicaments and biological substances; Z79.899 Other long term (current) drug therapy; I48.91 Unspecified atrial fibrillation; M19.90 Unspecified osteoarthritis, unspecified site; I10 Essential (primary) hypertension; Z87.891 Personal history of nicotine dependence
CPT/HCPCS: 70450; 71045; 80053; 84484; 85025; 93005; 93010; 99284-25; J7030

== ENCOUNTER 2023-01-10 14:44 | Emergency (ER) | payer OTHER ==
[~2023-01-10] VITALS: Ht 175.3 cm; Wt 81.7 kg
[2023-01-10 15:49] LABS: BASOPHILS PERCENT AUTO 2 % (0-2); EOSINOPHILS ABSOLUTE AUTO 0.49 K/mm3 (0.00-0.68); EOSINOPHILS PERCENT AUTO 8 % (0-6); Hematocrit 32.9 % (37.0-53.0); IMMATURE GRAN ABSOLUTE AUTO 0.04 K/mm3 (0.00-0.10); IMMATURE GRAN PERCENT AUTO 1 % (0-1); LYMPHOCYTES PERCENT AUTO 17 % (21-46); MONOCYTES ABSOLUTE AUTO 1.09 K/mm3 (0.16-1.47); MONOCYTES PERCENT AUTO 18 % (4-13); Mean Corpuscular HGB 29.8 pg (26.0-34.0); Mean Corpuscular HGB Conc 30.4 g/dL (31.5-36.5); Mean Corpuscular Volume 98 fL (80-100); Mean Platelet Volume 11.6 fL (9.1-12.4); NEUTROPHILS ABSOLUTE AUTO 3.34 K/mm3 (1.96-9.15); NEUTROPHILS PERCENT AUTO 55 % (41-73); Platelet Count 190 K/mm3 (150-400); RDW Coefficient Variation 15.8 % (11.7-14.2); RDW Standard Deviation 55.7 fL (35.1-46.3); Red Blood Cell Count 3.36 M/mm3 (4.30-5.90); White Blood Cell Count 6.06 K/mm3 (4.00-11.30)
[2023-01-10 16:09] LABS: Albumin, Blood 3.2 g/dL (3.4-5.0); Albumin/Globulin Ratio 1.1 (0.8-1.8); Bilirubin, Total 0.6 mg/dL (0.1-1.0); Creatinine, Blood 1.4 mg/dL (0.60-1.20); Globulin, Blood 2.8 g/dL (2.2-4.0); Potassium, Blood 3.8 mmol/L (3.5-5.5)
[2023-01-10 16:13] LABS: Bicarbonate Venous 25.9 mmol/L (24.0-30.0); PCO2 Venous 61 mmHg (38-42); pH Blood Venous 7.29 (7.34-7.37)
[2023-01-10] MEDS ORDERED: KEPPRA250 M1 PO (17:13)
[2023-01-10 17:36] VITALS: BP 107/85
== END 2023-01-10 17:31 | disposition home or self-care (01) ==
LOC: ER 14:44
PROVIDERS: Family Medicine
DX: R56.9 Unspecified convulsions (principal); J44.9 Chronic obstructive pulmonary disease, unspecified; K21.9 Gastro-esophageal reflux disease without esophagitis; Z88.0 Allergy status to penicillin; Z88.4 Allergy status to anesthetic agent; Z79.51 Long term (current) use of inhaled steroids; Z79.899 Other long term (current) drug therapy; Z87.891 Personal history of nicotine dependence; W01.198A Fall on same level from slipping, tripping and stumbling with subsequent striking against other object, initial encounter
CPT/HCPCS: 70450; 71046; 80053; 82272; 82803; 85025; 93005; 93010; 96360; 96361; 99285-25; A9270; J7030

== ENCOUNTER 2023-01-11 08:12 | Inpatient (IN) | payer OTHER ==
[~2023-01-11] VITALS: Ht 175.3 cm; Wt 82.6 kg
[~2023-01-11 08:12] MED LIST changes: +KEPPRA250 M1 PO
[2023-01-11 08:43] LABS: BASOPHILS ABSOLUTE AUTO 0.13 K/mm3 (0.00-0.23); BASOPHILS PERCENT AUTO 1 % (0-2); EOSINOPHILS ABSOLUTE AUTO 0.17 K/mm3 (0.00-0.68); EOSINOPHILS PERCENT AUTO 1 % (0-6); Hemoglobin 10.5 g/dL (13.5-17.5); IMMATURE GRAN ABSOLUTE AUTO 0.13 K/mm3 (0.00-0.10); IMMATURE GRAN PERCENT AUTO 1 % (0-1); LYMPHOCYTES ABSOLUTE AUTO 0.67 K/mm3 (0.84-5.20); LYMPHOCYTES PERCENT AUTO 3 % (21-46); MONOCYTES ABSOLUTE AUTO 1.29 K/mm3 (0.16-1.47); MONOCYTES PERCENT AUTO 6 % (4-13); Mean Corpuscular HGB 30.1 pg (26.0-34.0); Mean Corpuscular HGB Conc 30.9 g/dL (31.5-36.5); Mean Corpuscular Volume 97 fL (80-100); Mean Platelet Volume 11.2 fL (9.1-12.4); NEUTROPHILS PERCENT AUTO 88 % (41-73); Platelet Count 196 K/mm3 (150-400); RDW Coefficient Variation 15.9 % (11.7-14.2); RDW Standard Deviation 55.9 fL (35.1-46.3); Red Blood Cell Count 3.49 M/mm3 (4.30-5.90); White Blood Cell Count 20.29 K/mm3 (4.00-11.30)
[2023-01-11 08:56] LABS: Source, Urine Foley catheter
[2023-01-11 08:59] LABS: PCO2 Arterial 50.3 mmHg (35-45); PO2 Arterial 65.7 mmHg (80-100); pH Blood Arterial 7.33 (7.35-7.45)
[2023-01-11 09:00] LABS: Appearance, Urine Hazy (Clear); Bilirubin, Urine Neg (Neg); Blood, Urine Neg (Neg); Color, Urine Yellow (P-Yellow); Glucose Qualitative, Urine Neg (Neg); Ketones, Urine Neg (Neg); Leukocyte Esterase, Urine 1+ (Neg); Nitrite, Urine Neg (Neg); Protein, Urine 2+ (Neg); Urobilinogen, Urine NORM (Normal)
[2023-01-11 09:10] LABS: Bacteria Many /hpf
[2023-01-11 09:13] LABS: Hyaline Casts 0-2 /lpf (0-2); Red Blood Cells, Urine 0-2 /hpf (0-2); Squamous Epithelial Cells Many /hpf (Few)
[2023-01-11 09:14] LABS: Mucus Light (0-Heavy)
[2023-01-11 09:31] LABS: Alanine Aminotransfer (ALT/SGP <6 U/L (12-78); Albumin, Blood 3.2 g/dL (3.4-5.0); Albumin/Globulin Ratio 1.2 (0.8-1.8); Alk Phos 156 U/L (50-136); Anion Gap 3 mmol/L (6-16); Aspartate Aminotrans (AST/SGOT 23 U/L (12-37); Bilirubin, Total 0.8 mg/dL (0.1-1.0); Blood Urea Nitrogen 23 mg/dL (8-24); Bun/Creatinine Ratio 14.3 (12.0-20.0); CO2, Blood 28 mmol/L (21-32); Calcium, Blood 9.1 mg/dL (8.5-10.1); Chloride, Blood 110 mmol/L (98-108); Creatinine, Blood 1.61 mg/dL (0.60-1.20); Globulin, Blood 2.7 g/dL (2.2-4.0); Glomerular Filtration Rate 43 (60-); Glucose, Blood 111 mg/dL (70-99); Potassium, Blood 4.1 mmol/L (3.5-5.5); Sodium, Blood 141 mmol/L (136-145); Total Protein, Blood 5.9 g/dL (6.4-8.2)
[2023-01-11 12:54] LABS: Base Excess Venous -3.5 mmol/L; Bicarbonate Venous 21.3 mmol/L (24.0-30.0); PCO2 Venous 52.1 mmHg (38-42); pH Blood Venous 7.26 (7.34-7.37)
--- NOTE | 2023-01-11 13:16 | NUR ---
ASSUMED CARE: PT ARRIVED FROM ED WITH 4L O2 IN PLACE. WAS 85% ON THIS. TITRATED UP TO 7L AND CALLED RT. RT RECIEVED VBG RESULT WITH CRITICAL PH NOTED. PLACED PT ON BIPAP AT 14/8 WITH A 3L BLEED IN. CALL TO DR SPAIN TO MAKE HER AWARE OF CURRENT STATUS. REQUESTS REPEAT VBG THIS AFTERNOON. RT AWARE. PT AFIB ON TELE WITH PACING AND OCCASIONAL PVCS WITH HR IN 80S. AT BEDSIDE STATES SHE WANTS PT TO BE A FULL CODE LONG HE WOULD NOT BE "BRAIN ." EXPLAINED TO HER THAT A CODE BLUE DOES NOT GUARANTEE THAT THERE WOULD BE NO NEURO DEFICITS AFTERWARDS. UNDERSTANDS AND WISHES TO PROCEED WITH FULL CODE. ORDER CHANGED PER DR SPAIN. CALL LIGHT IN REACH. NO FURTHER NEEDS AT THIS TIME.
[2023-01-11 13:51] LABS: Adenovirus Not Detected (NOT DETECT); Bordetella pertussis Not Detected (NOT DETECT); Chlamydophila pneumoniae Not Detected (NOT DETECT); Coronavirus 229E Not Detected (NOT DETECT); Coronavirus HKU1 Not Detected (NOT DETECT); Coronavirus NL63 Not Detected (NOT DETECT); Coronavirus OC43 Not Detected (NOT DETECT); Human Metapneumovirus Not Detected (NOT DETECT); Human Rhinovirus/Enterovirus Not Detected (NOT DETECT); Influenza A/2009-H1 Not Detected (NOT DETECT); Influenza A/H1 Not Detected (NOT DETECT); Influenza A/H3 Not Detected (NOT DETECT); Influenza B Not Detected (NOT DETECT); Mycoplasma pneumoniae Not Detected (NOT DETECT); Parainfluenza Virus 1 Not Detected (NOT DETECT); Parainfluenza Virus 2 Not Detected (NOT DETECT); Parainfluenza Virus 3 Not Detected (NOT DETECT); Parainfluenza Virus 4 Not Detected (NOT DETECT); Respiratory Syncytial Virus Not Detected (NOT DETECT); SARS-Cov-2 (COVID-19), BioFire Not Detected (NOT DETECT)
[2023-01-11 15:02] VITALS: BP 107/61
--- NOTE | 2023-01-11 16:25 | NUR ---
TELE NOTIFIED RN THAT PACER SPIKES WERE OCCURRING AFTER QRS. CALL TO DR SPAIN WHO INSTRUCTED TO CALL DR XIE. DR XIE ASKED IF PT WAS BRADYCARDIC. RN REPORTED NOT SINCE HE HAS BEEN ON TELE IN THIS UNIT. STATED THAT IT IS NOT LIKELY NOT WORKING BUT ELECTROMAGNETIC INTERFERENCE INSTEAD. COLLECTED DR SPAIN'S NUMBER SO THAT HE COULD CALL HER FOR FURTHER QUESTIONS
[2023-01-11 17:25] LABS: Base Excess Venous -3.1 mmol/L; Bicarbonate Venous 21.4 mmol/L (24.0-30.0); PCO2 Venous 48.4 mmHg (38-42); pH Blood Venous 7.29 (7.34-7.37)
--- NOTE | 2023-01-11 18:01 | NUR ---
SHIFT SUMMARY: PT HAD VBG DONE THIS AFTERNOON WITH SLIGHT IMPROVEMENT IN VBG. RT ADJUSTED SETTINGS TO ACCOUNT FOR THIS. SEE RT NOTE. CALL TO DR SPAIN WHO ORDERED VBG FOR THIS EVENING. NO ACUTE NEEDS OR CONCERNS AT THIS TIME. REMAINS AT BEDSIDE.
[2023-01-11 20:40] VITALS: BP 124/84
[2023-01-11 22:39] LABS: Base Excess Venous -2.5 mmol/L; Bicarbonate Venous 22.5 mmol/L (24.0-30.0); PCO2 Venous 40.4 mmHg (38-42); pH Blood Venous 7.36 (7.34-7.37)
[2023-01-12] VITALS: BP 118/74
[2023-01-12 03:26] VITALS: BP 123/81
[2023-01-12 04:25] LABS: Hematocrit 30.2 % (37.0-53.0); Hemoglobin 9.4 g/dL (13.5-17.5); Mean Corpuscular HGB Conc 31.1 g/dL (31.5-36.5); Mean Corpuscular Volume 97 fL (80-100); Mean Platelet Volume 11.3 fL (9.1-12.4); Platelet Count 150 K/mm3 (150-400); RDW Coefficient Variation 15.9 % (11.7-14.2); RDW Standard Deviation 55.8 fL (35.1-46.3); Red Blood Cell Count 3.13 M/mm3 (4.30-5.90); White Blood Cell Count 22.57 K/mm3 (4.00-11.30)
--- NOTE | 2023-01-12 04:29 | NUR ---
SHIFT SUMMARY PT A&Ox4, CALLS AND COMMUNICATES NEEDS APPROPRIATELY. BP STABLE, DENIES CP/PRESSURE. AFIB/PACED 70's. SpO2> 92% ON BIPAP 21/02, DENIES SOB. PT TOLERATED WATER APPROPRIATELY. [place] CATH IN PLACE, PATENT, DRAINING TO GRAVITY. AFEBRILE WITH CORE TEMP MONITORING. NO BM THIS SHIFT. NO OTHER EVENTS, WILL REPORT TO ONCOMING RN.
[2023-01-12 04:41] LABS: Bun/Creatinine Ratio 19.2 (12.0-20.0); Calcium, Blood 8.4 mg/dL (8.5-10.1); Creatinine, Blood 1.2 mg/dL (0.60-1.20); Potassium, Blood 3.5 mmol/L (3.5-5.5)
[2023-01-12 04:45] LABS: BAND PERCENT MAN 13 % (0-8); BASOPHILS PERCENT MAN 0 % (0-2); EOSINOPHILS PERCENT MAN 0 % (0-6); LYMPHOCYTES ABSOLUTE MAN 0.67 K/mm3 (0.84-5.20); LYMPHOCYTES PERCENT MAN 3 % (21-46); MONOCYTES ABSOLUTE MAN 0.22 K/mm3 (0.16-1.47); MONOCYTES PERCENT MAN 1 % (4-13); NEUTROPHILS ABSOLUTE MAN 21.66 K/mm3 (1.96-9.15); SEG NEUTROPHILS PERCENT MAN 83 % (41-73); TOTAL CELLS COUNTED 100
--- NOTE | 2023-01-12 07:10 | NUR ---
ASSUMED CARE: PACED ON TELE AT THIS TIME. BIPAP IN PLACE WITH SETTINGS 21/02. CALL LIGHT IN REACH. NO ACUTE NEEDS OR CONCERNS AT THIS TIME.
[2023-01-12 07:32] VITALS: BP 154/95
--- NOTE | 2023-01-12 09:23 | NUR ---
ATTEMPTED TO GIVE PT BREAK FROM BIPAP FOR BREAKFAST AND AGAIN WHEN DR SPAIN WAS AT BEDSIDE. BOTH TIMES PT HAD INCREASED WORK OF BREATHING AFTER ONLY A COUPLE OF MINUTES AND MASK WAS REQUIRED TO BE REPLACED. SATURATIONS AND VS DID NOT CHANGE EXCEPT FOR INCREASE IN RESPIRATIONS.
[2023-01-12 11:37] VITALS: BP 131/89
[2023-01-12 15:20] VITALS: BP 159/98
--- NOTE | 2023-01-12 16:43 | NUR ---
PT'S BIPAP IN PLACE AND STATED HE FELT LIKE HE COULDN'T BREATHE. NO CHANGES TO SATURATION. SAT HIM UP IN BED. MACHINE OPERATOR FARMWORKER STATED THAT THIS EPISODE COINCIDED WITH COUPLET PVCS. CALL TO DR SPAIN. SEE NEW ORDERS.
[2023-01-12 17:26] LABS: Magnesium, Blood 1.9 mg/dL (1.6-2.4); Potassium, Blood 3.4 mmol/L (3.5-5.5)
--- NOTE | 2023-01-12 17:48 | NUR ---
SHIFT SUMMARY: PT CURRENTLY ON 3L O2 VIA NC. INCREASE WORK OF BREATHING PT CLAIMS IS FROM BACK PAIN AND WANTED TO LAY BACK DOWN. TOLD PT THAT WE WOULD ONLY GIVE HIM A BREAK FOR A FEW MINUTES MORE. CHECKED BACK WITH PT WHO WAS MORE RELAXED AND BREATHING MORE EASILY. EDUCATED PT AND THAT IF PT IS SLEEPING HE NEEDS TO WEAR MASK. PT STATES HE ONLY WEARS NASAL CANNULA AT HOME. REITERATED TO HIM WHAT DR SPAIN TOLD HIM THIS MORNING ABOUT CO2 RETENTION WITH SLEEP APNEA, NARCOTIC USE AND PNEUMONIA. PT AND STATE THEY UNDERSTAND AND ARE PREPARED FOR THE INSTRUCTION OF MASK USE WITH SLEEP WHEN HE GOES HOME. CALL LIGHT IN REACH. DENIES FURTHER NEEDS OR CONCERNS AT THIS TIME.
[2023-01-12 23:30] VITALS: BP 136/89
[2023-01-13 03:41] LABS: BASOPHILS ABSOLUTE AUTO 0.03 K/mm3 (0.00-0.23); BASOPHILS PERCENT AUTO 0 % (0-2); EOSINOPHILS PERCENT AUTO 0 % (0-6); Hematocrit 30.9 % (37.0-53.0); Hemoglobin 9.7 g/dL (13.5-17.5); IMMATURE GRAN ABSOLUTE AUTO 0.21 K/mm3 (0.00-0.10); IMMATURE GRAN PERCENT AUTO 1 % (0-1); LYMPHOCYTES PERCENT AUTO 5 % (21-46); MONOCYTES ABSOLUTE AUTO 0.98 K/mm3 (0.16-1.47); MONOCYTES PERCENT AUTO 5 % (4-13); Mean Corpuscular HGB 29.6 pg (26.0-34.0); Mean Corpuscular HGB Conc 31.4 g/dL (31.5-36.5); Mean Corpuscular Volume 94 fL (80-100); Mean Platelet Volume 11.2 fL (9.1-12.4); NEUTROPHILS ABSOLUTE AUTO 19.41 K/mm3 (1.96-9.15); NEUTROPHILS PERCENT AUTO 90 % (41-73); Platelet Count 173 K/mm3 (150-400); RDW Coefficient Variation 16.1 % (11.7-14.2); Red Blood Cell Count 3.28 M/mm3 (4.30-5.90); White Blood Cell Count 21.63 K/mm3 (4.00-11.30)
[2023-01-13 03:56] VITALS: BP 161/109
[2023-01-13 03:58] LABS: Anion Gap 2 mmol/L (6-16); Blood Urea Nitrogen 23 mg/dL (8-24); Bun/Creatinine Ratio 23.7 (12.0-20.0); CO2, Blood 27 mmol/L (21-32); Calcium, Blood 8.7 mg/dL (8.5-10.1); Chloride, Blood 115 mmol/L (98-108); Creatinine, Blood 0.97 mg/dL (0.60-1.20); Glomerular Filtration Rate 79 (60-); Glucose, Blood 116 mg/dL (70-99); Phosphorus, Blood 1.5 mg/dL (2.5-4.9); Potassium, Blood 3.7 mmol/L (3.5-5.5); Sodium, Blood 144 mmol/L (136-145)
--- NOTE | 2023-01-13 06:14 | NUR ---
SHIFT SUMMARY PT A&Ox4, CALLS AND COMMUNICATES NEEDS APPROPRIATELY. BP ELEVATED AT TIME WITH SBP 150's, DENIES CP/PRESSURE. AFIB/PACED 70-110's. SpO2> 92% ON BIPAP 12/6 OR 2L VIA NC, DENIES SOB. PT CONTINENT/INCONTINENT OF URINE, USES URINAL IN BED WHEN CONTINENT. NO BM THIS SHIFT. NO C/O PAIN. NO OTHER EVENTS, WILL REPORT TO ONCOMING RN.
[2023-01-13 07:37] VITALS: BP 150/96
--- NOTE | 2023-01-13 10:28 | NUR ---
AM NOTE PT LAYING IN BED WITH CPAP IN PLACE. REMOVED PT'S CPAP REPLACED WITH A NC AT 3L. PT IS ALERT AND ORIENTATED TO PERSON, PLACE, SITUATION AND TIME. DENIES CHEST PAIN, SHORTNESS OF BREATH, NAUSEA, ABDOMINAL PAIN, AND DIZZINESS. HAS COMPLAINT OF A HEADACHE. PT HAD A 5 BEAT RUN OF VTACH. PT IS IN AFIB WITH OCCASSIONAL PVC'S IN THE 80'S AND 90'S. 0900 PT IS EXTREMELY ANXIOUS WITH THE PLACEMENT OF BIPAP. BIPAP REMOVED AGAIN AND PT IS MEDICATED WITH PRN ANXIETY MEDICATION PER EMAR. AWAITING PROVIDER EVALUATION, WILL CONTINUE TO MONITOR PT.
[2023-01-13 11:09] VITALS: BP 129/87
[2023-01-13 14:19] VITALS: BP 137/93
--- NOTE | 2023-01-13 18:03 | NUR ---
SHIFT SUMMARY PT REMAINED ALERT AND ORIENTATED THROUGHOUT THE SHIFT. VITAL SIGNS HAVE REMAINED STABLE. PT HAS BEEN MORE COMPLIANT WITH THE BIPAP AND HAS REMAINED ON FOR APPROXIMATELY TWO HOURS AT A TIME. A SPEECH SWALLOW EVAL HAS BEEN ORDERED FOR THE AM. PT DENIES CHEST PAIN, INCREASED SHORTNESS OF BREATH, NAUSEA, DIZZINESS.
[2023-01-13 18:07] VITALS: BP 130/84
--- NOTE | 2023-01-13 18:46 | NUR ---
I have reviewed the nursing professor documentation and am in agreement.
[2023-01-13 19:59] VITALS: BP 138/98
[2023-01-14] VITALS (9 sets, daily range): BP systolic 142–174; BP diastolic 83–120
[2023-01-14 03:55] LABS: BASOPHILS ABSOLUTE AUTO 0.06 K/mm3 (0.00-0.23); BASOPHILS PERCENT AUTO 1 % (0-2); EOSINOPHILS PERCENT AUTO 1 % (0-6); Hematocrit 30.9 % (37.0-53.0); Hemoglobin 9.8 g/dL (13.5-17.5); IMMATURE GRAN ABSOLUTE AUTO 0.09 K/mm3 (0.00-0.10); IMMATURE GRAN PERCENT AUTO 1 % (0-1); LYMPHOCYTES ABSOLUTE AUTO 1.16 K/mm3 (0.84-5.20); LYMPHOCYTES PERCENT AUTO 11 % (21-46); MONOCYTES ABSOLUTE AUTO 0.74 K/mm3 (0.16-1.47); MONOCYTES PERCENT AUTO 7 % (4-13); Mean Corpuscular HGB 30.2 pg (26.0-34.0); Mean Corpuscular HGB Conc 31.7 g/dL (31.5-36.5); Mean Corpuscular Volume 95 fL (80-100); Mean Platelet Volume 10.8 fL (9.1-12.4); NEUTROPHILS ABSOLUTE AUTO 8.09 K/mm3 (1.96-9.15); NEUTROPHILS PERCENT AUTO 79 % (41-73); Platelet Count 172 K/mm3 (150-400); RDW Coefficient Variation 16.4 % (11.7-14.2); RDW Standard Deviation 57.5 fL (35.1-46.3); Red Blood Cell Count 3.24 M/mm3 (4.30-5.90); White Blood Cell Count 10.24 K/mm3 (4.00-11.30)
[2023-01-14 04:13] LABS: Albumin, Blood 2.8 g/dL (3.4-5.0); Anion Gap 2 mmol/L (6-16); Blood Urea Nitrogen 17 mg/dL (8-24); Bun/Creatinine Ratio 15.6 (12.0-20.0); CO2, Blood 28 mmol/L (21-32); Calcium, Blood 8.4 mg/dL (8.5-10.1); Chloride, Blood 116 mmol/L (98-108); Creatinine, Blood 1.09 mg/dL (0.60-1.20); Glomerular Filtration Rate 69 (60-); Glucose, Blood 104 mg/dL (70-99); Phosphorus, Blood 2.6 mg/dL (2.5-4.9); Potassium, Blood 3.3 mmol/L (3.5-5.5); Sodium, Blood 146 mmol/L (136-145)
--- NOTE | 2023-01-14 05:58 | NUR ---
SHIFT SUMMARY PT A&Ox4, CALLS AND COMMUNICATES NEEDS APPROPRIATELY. BP STABLE, DENIES CP/PRESSURE. AFIB/PACED 70-110's. SpO2> 92% ON BIPAP 12/6 OR 2L VIA NC, DENIES SOB. PT CONTINENT/INCONTINENT OF URINE, USES URINAL IN BED WHEN CONTINENT. NO BM THIS SHIFT. NO C/O PAIN. NO OTHER EVENTS, WILL REPORT TO ONCOMING RN.
--- NOTE | 2023-01-14 09:12 | NUR ---
AM NOTE PT RESTING COMFORTABLY ON BIPAP. PT REMOVED FROM BIPAP AND TRIALED ON RA, MAINTAINING SPO2 >92%. SPEECH THERAPY CLEARED PT ON SWALLOW FOR THIN CLEAR LIQUIDS, CARDIAC DIET. PT HAS COMPLAINT OF 10/10 HEADACHE MEDICATED PER EMAR. DENIES CHEST PAIN, WORSENING SHORTNESS OF BREATH, DIZZINESS, ABDOMINAL PAIN. DNETAL HYGENIST IN ROOM. AWAITING PROVIDER RE-EVALUATION, EXPECTING PT/OT EVALUATION. PT DENIES FURTHER NEEDS AT THIS TIME.
[2023-01-14] MEDS ORDERED: ABAT250V SC (14:38)
[2023-01-14 14:39] LABS: Bun/Creatinine Ratio 13.8 (12.0-20.0); Calcium, Blood 8.3 mg/dL (8.5-10.1); Creatinine, Blood 1.16 mg/dL (0.60-1.20); Potassium, Blood 3.9 mmol/L (3.5-5.5)
[2023-01-14] MEDS ORDERED: BUPR150ER PO (15:36)
[2023-01-14] MEDS ORDERED: FAMO40 PO (15:38)
[2023-01-14] MEDS ORDERED: LEFL20 PO (15:39)
[2023-01-14] MEDS ORDERED: OXYB5 PO (15:45)
[2023-01-14] MEDS ORDERED: SULF500 PO (15:47)
[2023-01-14] MEDS ORDERED: METO50ER PO (15:49)
[2023-01-14] MEDS ORDERED: STIOLTO RESPIMAT4 G1 INH (15:50)
[2023-01-14] MEDS ORDERED: MOME220I INH (15:51)
--- NOTE | 2023-01-14 16:36 | NUR ---
SHIFT SUMMARY PT REMAINED ALERT AND ORIENTATED. PT BECAME HYPERTENSIVE IN THE 160'S SBP MEDICATED PER EMAR. PT'S MEDICATION LIST UPDATED AND REVIEWED BY PROVIDER. OT EVALUATION ORDERED. PT WAS EXTREMELY DROWSY DURING DURING PT EVALUATION TODAY, AND WAS UNABLE TO COMPLETE ALL THE ACTIVITES. PT WAS ABLE TO STAND WITH A WALKER. PT DENIES CHEST PAIN, WORSENING SHORTNESS OF BREATH, NAUSEA, DIZZINESSM, OR ABDOMINAL PAIN. WILL REPORT OFF TO ONCOMING RN.
--- NOTE | 2023-01-14 18:37 | NUR ---
I have reviewed the nursing students documentation and am in agreement.
--- NOTE | 2023-01-14 20:23 | NUR ---
PATIENT RESTING IN BED CONTINUES TO C/O MENDEZ. BRODERICK EQUIL LEGS WEAKNESS NOTED. KATIUSKA. A&O X3. CT SCAN AND NORCO GIVEN BY BRE. 2L/NC IN PLACE PATIENT VERBALIZED THAT HE IS ON 2-3L/NC AT HOME. ASSISTING WITH URINAL PLACEMENT NEEDED.
--- NOTE | 2023-01-15 02:43 | NUR ---
DOCTOR THEODORA NOTIFIED OF CONTINUED C/O MENDEZ. FIORICET ORDER OBTAINED
[2023-01-15 04:02] VITALS: BP 126/76
[2023-01-15 04:52] LABS: BASOPHILS ABSOLUTE AUTO 0.08 K/mm3 (0.00-0.23); BASOPHILS PERCENT AUTO 1 % (0-2); EOSINOPHILS ABSOLUTE AUTO 0.43 K/mm3 (0.00-0.68); EOSINOPHILS PERCENT AUTO 6 % (0-6); Hematocrit 32.7 % (37.0-53.0); Hemoglobin 10.2 g/dL (13.5-17.5); IMMATURE GRAN ABSOLUTE AUTO 0.07 K/mm3 (0.00-0.10); IMMATURE GRAN PERCENT AUTO 1 % (0-1); LYMPHOCYTES ABSOLUTE AUTO 1.09 K/mm3 (0.84-5.20); LYMPHOCYTES PERCENT AUTO 14 % (21-46); MONOCYTES ABSOLUTE AUTO 1.05 K/mm3 (0.16-1.47); MONOCYTES PERCENT AUTO 13 % (4-13); Mean Corpuscular HGB 29.3 pg (26.0-34.0); Mean Corpuscular HGB Conc 31.2 g/dL (31.5-36.5); Mean Corpuscular Volume 94 fL (80-100); Mean Platelet Volume 11.6 fL (9.1-12.4); NEUTROPHILS ABSOLUTE AUTO 5.13 K/mm3 (1.96-9.15); NEUTROPHILS PERCENT AUTO 65 % (41-73); Platelet Count 182 K/mm3 (150-400); RDW Coefficient Variation 16.3 % (11.7-14.2); RDW Standard Deviation 55.6 fL (35.1-46.3); Red Blood Cell Count 3.48 M/mm3 (4.30-5.90); White Blood Cell Count 7.85 K/mm3 (4.00-11.30)
[2023-01-15 05:15] LABS: Albumin, Blood 2.8 g/dL (3.4-5.0); Anion Gap 3 mmol/L (6-16); Blood Urea Nitrogen 17 mg/dL (8-24); Bun/Creatinine Ratio 15.6 (12.0-20.0); CO2, Blood 27 mmol/L (21-32); Calcium, Blood 8.2 mg/dL (8.5-10.1); Chloride, Blood 113 mmol/L (98-108); Creatinine, Blood 1.09 mg/dL (0.60-1.20); Glomerular Filtration Rate 69 (60-); Glucose, Blood 91 mg/dL (70-99); Phosphorus, Blood 2.5 mg/dL (2.5-4.9); Sodium, Blood 143 mmol/L (136-145)
[2023-01-15 11:58] VITALS: BP 149/89
[2023-01-15 15:58] VITALS: BP 165/99
--- NOTE | 2023-01-15 17:32 | NUR ---
TRANSFER TO MEDICAL PT A&O X3-4 W/ SOME FORGETFULNESS. PT C/O HEADACHE, W/ PT REPORTING HEADACHE ONGOING X1 MONTH. PT MEDICATED PER EMAR/PT REQUEST W/ BRIEF IMPROVEMENT. PT VSS. SPO2 > 92% ON 2L NC PRN. MONITOR SHOWING AFIB, HR 80s-110 PRIOR TO ORDERS FOR MEDICAL NO TELE STATUS. PT INCONTINENT/CONTINENT, WEARING ATTENDS & USING URINAL AT TIMES. PT 1 PERSON ASSIST W/ FWW. REPORT GIVEN TO ACCEPTING MEDICAL FLOOR RN. [place] THEN W/ ARRIVAL OF [facility] FOR PT. PT TO BE TAKEN TO 338 BY WHEELCHAIR W/ BELONGINGS.
--- NOTE | 2023-01-15 18:37 | NUR ---
1800 ASSUMED CARE OF PT. TX'D FROM PCU TO RM 338. PT SITTING TO EOB, EATING DINNER. AT BS. DENIED NEEDS. NO C/O.
[2023-01-15 20:09] VITALS: BP 155/96
[2023-01-16 01:56] VITALS: BP 170/102
[2023-01-16 06:00] LABS: BASOPHILS ABSOLUTE AUTO 0.07 K/mm3 (0.00-0.23); BASOPHILS PERCENT AUTO 1 % (0-2); EOSINOPHILS ABSOLUTE AUTO 0.57 K/mm3 (0.00-0.68); EOSINOPHILS PERCENT AUTO 8 % (0-6); Hematocrit 36.2 % (37.0-53.0); Hemoglobin 11.6 g/dL (13.5-17.5); IMMATURE GRAN ABSOLUTE AUTO 0.07 K/mm3 (0.00-0.10); IMMATURE GRAN PERCENT AUTO 1 % (0-1); LYMPHOCYTES ABSOLUTE AUTO 1.28 K/mm3 (0.84-5.20); LYMPHOCYTES PERCENT AUTO 17 % (21-46); MONOCYTES ABSOLUTE AUTO 1.04 K/mm3 (0.16-1.47); MONOCYTES PERCENT AUTO 14 % (4-13); Mean Corpuscular HGB 29.8 pg (26.0-34.0); Mean Corpuscular Volume 93 fL (80-100); Mean Platelet Volume 11.1 fL (9.1-12.4); NEUTROPHILS ABSOLUTE AUTO 4.38 K/mm3 (1.96-9.15); NEUTROPHILS PERCENT AUTO 59 % (41-73); Platelet Count 194 K/mm3 (150-400); RDW Coefficient Variation 16.1 % (11.7-14.2); RDW Standard Deviation 54.4 fL (35.1-46.3); Red Blood Cell Count 3.89 M/mm3 (4.30-5.90); White Blood Cell Count 7.41 K/mm3 (4.00-11.30)
[2023-01-16 07:11] LABS: Albumin, Blood 3.1 g/dL (3.4-5.0); Anion Gap 8 mmol/L (6-16); Blood Urea Nitrogen 17 mg/dL (8-24); CO2, Blood 24 mmol/L (21-32); Calcium, Blood 9.3 mg/dL (8.5-10.1); Chloride, Blood 112 mmol/L (98-108); Creatinine, Blood 1.06 mg/dL (0.60-1.20); Ferritin, Serum 80 ng/mL (26-388); Glomerular Filtration Rate 71 (60-); Glucose, Blood 107 mg/dL (70-99); Iron Serum 44 ug/dL (65-175); Percent Saturation 15.1 % (20.0-50.0); Phosphorus, Blood 2.4 mg/dL (2.5-4.9); Potassium, Blood 3.9 mmol/L (3.5-5.5); Sodium, Blood 144 mmol/L (136-145); Total Iron Binding Capacity 291 ug/dL (250-450)
[2023-01-16 07:45] VITALS: BP 174/104
[2023-01-16 08:32] VITALS: BP 147/103
[2023-01-16 14:57] VITALS: BP 126/92
--- NOTE | 2023-01-16 18:00 | NUR ---
SHIFT SUMMARY PATIENT IS ALERT BUT OCCASIONALLY CONFUSED. PATIENT HAS HAD NO ACUTE EVENTS THIS SHIFT. VITAL SIGNS REVIEWED. PATIENTS BP HAS BEEN ELEVATED. PRN BP MEDS GIVEN WITH GOOD RESULT. PATIENT HAS COMPLAINED OF HEADACHE MOST OF SHIFT, MEDICATED PER EMAR. PATIENT HAS HAD NO COMPLAINTS OF NAUSEA, OR SOB THIS SHIFT. BED IN LOCKED AND LOWEST POSITION. CALL LIGHT IN PLACE. WILL MONITOR UNTIL SHIFT CHANGE.
[2023-01-16 19:20] VITALS: BP 132/89
[2023-01-17 04:21] VITALS: BP 137/95
[2023-01-17 05:04] VITALS: BP 160/95
--- NOTE | 2023-01-17 05:35 | NUR ---
SHIFT SUMMARY 82 YR M ADMITTED ON 02/11/23 FOR ACUTE ON CHRONIC RESPIRATORY FAILURE. FULL CODE. NO ACUTE CHANGES THIS SHIFT. PT TOLERATED BIPAP UNTIL APPROX 0130 A.M. THE HAD RT REMOVE IT STATING THAT IT WAS VERY UNCOMFORTABLE AND HE COULD NOT SLEEP WITH IT ON. O2 SATS HAVE REMAINED STABLE. BP WAS 160/95 THIS A.M. @ 0504. PRN HYDROLYZINE WAS GIVEN PER EMAR. PT HAD NO C/O PAIN OR DISCOMFORT THIS SHIFT AND APPEARS TO HAVE SLEPT WELL AFTER THE BIPAP WAS REMOVED.
[2023-01-17 07:15] VITALS: BP 123/91
[2023-01-17 14:38] VITALS: BP 111/71
[2023-01-17 19:38] VITALS: BP 143/90
[2023-01-18 04:10] VITALS: BP 129/88
--- NOTE | 2023-01-18 06:26 | NUR ---
SHIFT SUMMARY PT LAYING IN BED DURING BEDSIDE REPORT - PT TOOK SCHEDULED HS MEDS WITHOUT PROBLEMS, PT AMBULATED TO THE BR A COUPLE TIMES AT BEGINNING OF SHIFT, PT WEAKNESS INCREASING IN THE NIGHT, REQUESTED PT TO USE URINAL AT TIMES D/T INCREASE WEAKNESS- PT AGREED- PT ON FRUIT PICKER T/O NIGHT- PT USES CALL LIGHT APPROPRIATELY - BED LOW POSITION, CALL LIGHT WITHIN REACH
[2023-01-18 07:26] VITALS: BP 129/109
[2023-01-18 10:01] VITALS: BP 100/74
[2023-01-18] MEDS ORDERED: VISBIOME 112.51 EACH PO (14:25)
[2023-01-18] MEDS ORDERED: HYDHCL25 PO (14:25)
[2023-01-18] MEDS ORDERED: Oxcarbazepine300 MG PO (14:25)
--- NOTE | 2023-01-18 15:19 | NUR ---
PT REQUESTING MEDS BE SENT TO [facility] TO PRACTICING DERMATOLOGIST FRIDAY DUE TO [facility] BE[facility] CLOSED OVER THE WEEKEND. PT CONFIRMS
--- NOTE | 2023-01-18 17:42 | NUR ---
SHIFT SUMMARY PT A&OX4 AND IN PLEASENT MOOD T/O SHIFT. @ BEDSIDE T/O SHIFT. TOLERATING PO INTAKE WELL, VSS. HOME O2 EVAL COMPLETE-RT REPORTS PT REQUIRES 10L W/ ACTIVITY. DC PLANNING WORKING ON GETTING PORTABLE OXYGEN AND WC- THE REST OF DC IS COMPLETE.
== END 2023-01-18 19:23 | disposition home health service (06) | DRG 871 ==
LOC: ER 08:12 → PCU 11:54 → MEDS 01-15 17:39 → ENPENDDIS 01-18 14:48 → MEDS 01-18 19:23
PROVIDERS: Emergency Medicine; Internal Medicine; ADMIT Family Medicine
PROC: 5A09457 Assistance with Respiratory Ventilation, 24-96 Consecutive Hours, Continuous Positive Airway Pressure (ICD-10-PCS; principal; 2023-01-11)
PROC: 4A033R1 Measurement of Arterial Saturation, Peripheral, Percutaneous Approach (ICD-10-PCS; 2023-01-11)
PROC: 0T9B70Z Drainage of Bladder with Drainage Device, Via Natural or Artificial Opening (ICD-10-PCS; 2023-01-11)
PROC: 3E03329 Introduction of Other Anti-infective into Peripheral Vein, Percutaneous Approach (ICD-10-PCS; 2023-01-11)
DX: A41.9 Sepsis, unspecified organism (principal); G92.8 Other toxic encephalopathy; J18.9 Pneumonia, unspecified organism; J96.21 Acute and chronic respiratory failure with hypoxia; J96.22 Acute and chronic respiratory failure with hypercapnia; N39.0 Urinary tract infection, site not specified; I47.20 Ventricular tachycardia, unspecified; J44.0 Chronic obstructive pulmonary disease with (acute) lower respiratory infection; R65.20 Severe sepsis without septic shock; R56.9 Unspecified convulsions; R51.9 Headache, unspecified; I48.91 Unspecified atrial fibrillation; E03.9 Hypothyroidism, unspecified; K21.9 Gastro-esophageal reflux disease without esophagitis; E78.5 Hyperlipidemia, unspecified; R26.9 Unspecified abnormalities of gait and mobility; E87.6 Hypokalemia; I95.9 Hypotension, unspecified; M35.3 Polymyalgia rheumatica; F32.A Depression, unspecified; M19.90 Unspecified osteoarthritis, unspecified site; K44.9 Diaphragmatic hernia without obstruction or gangrene; R79.89 Other specified abnormal findings of blood chemistry; K22.89 Other specified disease of esophagus; I34.0 Nonrheumatic mitral (valve) insufficiency; I12.9 Hypertensive chronic kidney disease with stage 1 through stage 4 chronic kidney disease, or unspecified chronic kidney disease; D63.1 Anemia in chronic kidney disease; N18.30 Chronic kidney disease, stage 3 unspecified; B95.4 Other streptococcus as the cause of diseases classified elsewhere; F03.90 Unspecified dementia, unspecified severity, without behavioral disturbance, psychotic disturbance, mood disturbance, and anxiety; E83.39 Other disorders of phosphorus metabolism; Z20.822 Contact with and (suspected) exposure to COVID-19; W22.8XXA Striking against or struck by other objects, initial encounter; Z96.641 Presence of right artificial hip joint; Z88.0 Allergy status to penicillin; Z88.8 Allergy status to other drugs, medicaments and biological substances; Z79.51 Long term (current) use of inhaled steroids; Z99.81 Dependence on supplemental oxygen; Z79.899 Other long term (current) drug therapy; Z98.890 Other specified postprocedural states; Z87.891 Personal history of nicotine dependence; Z79.891 Long term (current) use of opiate analgesic; Z79.01 Long term (current) use of anticoagulants; Z95.0 Presence of cardiac pacemaker; Z86.79 Personal history of other diseases of the circulatory system
CPT/HCPCS: 0202U; 36415; 36600; 70450; 71045; 72040; 72070; 80048; 80053; 80069; 81001; 82607; 82728; 82746; 82803; 83540; 83550; 83605; 83735; 83880; 84132; 84145; 84146; 84484; 85025; 87040; 87086; 92610; 93005; 93010; 94640; 94644; 94660; 94664; 94760; 94761; 94762; 96365; 96367; 96375; 97110; 97116; 97129; 97162; 97166; 97530; 99285-25; A9270; J0360; J0456; J0696; J1940; J2930; J7030; J7050; J7060

== ENCOUNTER 2023-03-24 14:19 | Inpatient (IN) | payer OTHER ==
[~2023-03-24] VITALS: Ht 172.7 cm; Wt 87.4 kg
[~2023-03-24 14:19] MED LIST changes: +ABAT250V SC; +HYDHCL25 PO; +MOME220I INH; +Oxcarbazepine300 MG PO; +SULF500 PO; +VISBIOME 112.51 EACH PO
[2023-03-24 14:58] LABS: Bicarbonate Venous 28.4 mmol/L (24.0-30.0); PCO2 Venous 69.6 mmHg (38-42); pH Blood Venous 7.29 (7.34-7.37)
[2023-03-24 15:02] LABS: BASOPHILS ABSOLUTE AUTO 0.05 K/mm3 (0.00-0.23); BASOPHILS PERCENT AUTO 1 % (0-2); EOSINOPHILS ABSOLUTE AUTO 0.41 K/mm3 (0.00-0.68); EOSINOPHILS PERCENT AUTO 9 % (0-6); Hematocrit 37.3 % (37.0-53.0); Hemoglobin 11.8 g/dL (13.5-17.5); IMMATURE GRAN ABSOLUTE AUTO 0.02 K/mm3 (0.00-0.10); IMMATURE GRAN PERCENT AUTO 1 % (0-1); LYMPHOCYTES ABSOLUTE AUTO 1.09 K/mm3 (0.84-5.20); LYMPHOCYTES PERCENT AUTO 25 % (21-46); MONOCYTES ABSOLUTE AUTO 0.78 K/mm3 (0.16-1.47); MONOCYTES PERCENT AUTO 18 % (4-13); Mean Corpuscular HGB 29.7 pg (26.0-34.0); Mean Corpuscular HGB Conc 31.6 g/dL (31.5-36.5); Mean Corpuscular Volume 94 fL (80-100); Mean Platelet Volume 11.5 fL (9.1-12.4); NEUTROPHILS ABSOLUTE AUTO 2.06 K/mm3 (1.96-9.15); NEUTROPHILS PERCENT AUTO 47 % (41-73); Platelet Count 133 K/mm3 (150-400); RDW Coefficient Variation 14.7 % (11.7-14.2); RDW Standard Deviation 51.2 fL (35.1-46.3); Red Blood Cell Count 3.97 M/mm3 (4.30-5.90); White Blood Cell Count 4.41 K/mm3 (4.00-11.30)
[2023-03-24 15:17] LABS: Albumin, Blood 3.5 g/dL (3.4-5.0); Albumin/Globulin Ratio 1.2 (0.8-1.8); Bilirubin, Total 0.6 mg/dL (0.1-1.0); Bun/Creatinine Ratio 13.6 (12.0-20.0); Creatinine, Blood 1.18 mg/dL (0.60-1.20); Globulin, Blood 2.9 g/dL (2.2-4.0); Potassium, Blood 4.5 mmol/L (3.5-5.5); Total Protein, Blood 6.4 g/dL (6.4-8.2)
[2023-03-24] MEDS ORDERED: BUPRENORPHN-NA1 EACH SL (17:50)
[2023-03-24] MEDS ORDERED: SULF500 PO (17:50)
[2023-03-24 21:23] VITALS: BP 127/91
--- NOTE | 2023-03-24 23:04 | NUR ---
LATE ENTRY ER ADMIT ER ADMIT. PT IS ALERT AND ORIENTED X4, SPOUSE IS AT BEDSIDE. SPOUSE REPORTED A RECENT CHANGE IN PAIN MEDICATION JUST BEFORE SOB AND AMS STARTED. WHEELCHAIR BOUND. BIPAP SAT>90% PT DENIES CHEST PAIN. CHRONIC PAIN IN BACK AND LEGS.
[2023-03-25 03:41] VITALS: BP 131/85
[2023-03-25 05:06] LABS: BASOPHILS ABSOLUTE AUTO 0.01 K/mm3 (0.00-0.23); BASOPHILS PERCENT AUTO 0 % (0-2); EOSINOPHILS ABSOLUTE AUTO 0.01 K/mm3 (0.00-0.68); EOSINOPHILS PERCENT AUTO 0 % (0-6); Hematocrit 36.9 % (37.0-53.0); Hemoglobin 12.1 g/dL (13.5-17.5); IMMATURE GRAN ABSOLUTE AUTO 0.01 K/mm3 (0.00-0.10); IMMATURE GRAN PERCENT AUTO 0 % (0-1); LYMPHOCYTES ABSOLUTE AUTO 0.57 K/mm3 (0.84-5.20); LYMPHOCYTES PERCENT AUTO 18 % (21-46); MONOCYTES ABSOLUTE AUTO 0.11 K/mm3 (0.16-1.47); MONOCYTES PERCENT AUTO 4 % (4-13); Mean Corpuscular HGB 29.8 pg (26.0-34.0); Mean Corpuscular HGB Conc 32.8 g/dL (31.5-36.5); Mean Corpuscular Volume 91 fL (80-100); Mean Platelet Volume 11.7 fL (9.1-12.4); NEUTROPHILS PERCENT AUTO 77 % (41-73); Platelet Count 125 K/mm3 (150-400); RDW Coefficient Variation 14.7 % (11.7-14.2); RDW Standard Deviation 49.5 fL (35.1-46.3); Red Blood Cell Count 4.06 M/mm3 (4.30-5.90); White Blood Cell Count 3.11 K/mm3 (4.00-11.30)
--- NOTE | 2023-03-25 06:05 | NUR ---
PT ASKED FOR SHORT BREAK FROM BIPAP MASK. PER RT OK TO SWITCH TO 3L NC FOR A BIT.
[2023-03-25 06:24] LABS: Albumin, Blood 3.6 g/dL (3.4-5.0); Albumin/Globulin Ratio 1.3 (0.8-1.8); Bilirubin, Total 0.7 mg/dL (0.1-1.0); Bun/Creatinine Ratio 16.7 (12.0-20.0); Creatinine, Blood 1.02 mg/dL (0.60-1.20); Globulin, Blood 2.8 g/dL (2.2-4.0); Potassium, Blood 4.6 mmol/L (3.5-5.5); Total Protein, Blood 6.4 g/dL (6.4-8.2)
[2023-03-25 07:34] VITALS: BP 128/83
[2023-03-25 08:41] LABS: PCO2 Arterial 50.3 mmHg (35-45); PO2 Arterial 77.3 mmHg (80-100)
[2023-03-25 16:32] VITALS: BP 106/76
--- NOTE | 2023-03-25 18:13 | NUR ---
SHIFT SUMMARY 89 PT A&OX2-3. PT APPEARS CONFUSED AT TIMES. PER PT'S , PT IS STILL "LOOPY" AND WAS CONCERNED THAT HE WAS FIDGITY AND PULLING AT TUBING AND LINES WHILE SHE WAS SITTING WITH HIM IN THE MORNING. PT ATTEMTPED TO GET OUT OF BED SEVERAL TIMES T/O DAY WITHOUT ASSISTANCE AND HAS PULLED OFF HIS PULSE OX. BED ALARM HAS BEEN ON. PT ON 3L OF OXYGEN AND SATING IN LOW 90'S. PT DESATS WITHOUT OXYGEN. NON INVASIE HOME VENTILATOR BROUGHT IN BY [facility] FOR PT TO START USING BEFORE DISCHARGING HOME. PT USES URNIAL IND. AT BEDSIDE. VSS. PT EDUCATE ON POSSIBLE SOURCES OF IGNITION AND NO SMOKING POLICY. BED IN LOWEST POSITION AND CALL LIGHT IN REACH. BED ALARM ON.
[2023-03-25 20:07] VITALS: BP 99/80
[2023-03-26 02:33] VITALS: BP 119/88
--- NOTE | 2023-03-26 03:08 | NUR ---
INVESTMENT ACCOUNTING CLERK SUMMARY NO ACUTE EVENTS OVERNIGHT. A&OX4 WITH EPISODES OF MILD CONFUSION. PATIENT EFFECTIVELY COMMUNICATES NEEDS. VSS. RR EVEN AND UNLABORED ON 3L/MIN O2. PATIENT DONNING HOME NON-INVASIVE VENTILATOR /C 3L BLEED-IN DURING SLEEP. CONTINUOUS BIOX, SPO2 >90%. NO REPORTS OF PAIN OR SOB. BED LOW AND LOCKED. BED ALARM ON FOR SAFETY. CALL LIGHT WITHIN REACH. THIS RN WILL CONTINUE TO MONITOR.
--- NOTE | 2023-03-26 06:04 | NUR ---
PATIENT EDUCATION RELATED TO FIRE SAFETY PATIENT EDUCATED ON POSSIBLE IGNITION SOURCES AND NO SMOKING POLICY.
--- NOTE | 2023-03-26 07:30 | NUR ---
ASSUMED CARE: PT SITTING UPRIGHT IN BED, ON 3L O2. BED ALARM ON FOR INTERMITTENT CONFUSION. DENIES NEEDS OR CONCERNS AT THIS TIME.
[2023-03-26 08:07] VITALS: BP 103/77
[2023-03-26] MEDS ORDERED: Prednisone10 MG PO (11:08)
--- NOTE | 2023-03-26 12:01 | NUR ---
DISCHARGE: PT GIVEN INSTRUCTIONS REGARDING FOLLOW UP APPOINTMENTS AND PRESCRIPTIONS. RT DISCUSSED CPAP WITH PT AND TAUGHT HOW TO POWER IT ON AND OFF. HARD PRESCRIPTION GIVEN FOR SUBOXONE AND ADVISED FOLLOW UP WITH PHSYCIANS SOON POSSIBLE TO PREVENT RUNNING OUT OF MEDICATION. DENIED FURTHER NEEDS OR CONCERNS. ESCORTED OUT VIA WHEEL CHAIR.
== END 2023-03-26 12:04 | disposition home or self-care (01) | DRG 189 ==
LOC: ER 14:19 → MEDS 18:06 → SURS 18:06 → MEDS 20:58 → ENPENDDIS 03-26 09:54 → MEDS 03-26 12:04
PROVIDERS: Internal Medicine; Student in an Organized Health Care Education/Training Program; ADMIT Student in an Organized Health Care Education/Training Program
PROC: 5A09357 Assistance with Respiratory Ventilation, Less than 24 Consecutive Hours, Continuous Positive Airway Pressure (ICD-10-PCS; principal; 2023-03-25)
PROC: 3E033XZ Introduction of Vasopressor into Peripheral Vein, Percutaneous Approach (ICD-10-PCS; 2023-03-25)
DX: J96.21 Acute and chronic respiratory failure with hypoxia (principal); J44.1 Chronic obstructive pulmonary disease with (acute) exacerbation; I48.20 Chronic atrial fibrillation, unspecified; I50.32 Chronic diastolic (congestive) heart failure; E87.4 Mixed disorder of acid-base balance; G93.40 Encephalopathy, unspecified; J96.22 Acute and chronic respiratory failure with hypercapnia; R91.1 Solitary pulmonary nodule; I49.5 Sick sinus syndrome; F32.A Depression, unspecified; E03.9 Hypothyroidism, unspecified; I77.810 Thoracic aortic ectasia; M06.9 Rheumatoid arthritis, unspecified; G20 Parkinson's disease; R56.9 Unspecified convulsions; I11.0 Hypertensive heart disease with heart failure; E78.5 Hyperlipidemia, unspecified; G89.29 Other chronic pain; M19.90 Unspecified osteoarthritis, unspecified site; K44.9 Diaphragmatic hernia without obstruction or gangrene; F12.90 Cannabis use, unspecified, uncomplicated; Z96.641 Presence of right artificial hip joint; Z95.0 Presence of cardiac pacemaker; Z99.81 Dependence on supplemental oxygen; Z88.0 Allergy status to penicillin; Z88.8 Allergy status to other drugs, medicaments and biological substances; Z79.51 Long term (current) use of inhaled steroids; Z79.890 Hormone replacement therapy; Z79.899 Other long term (current) drug therapy; Z79.891 Long term (current) use of opiate analgesic; Z79.01 Long term (current) use of anticoagulants; Z87.19 Personal history of other diseases of the digestive system; Z98.890 Other specified postprocedural states; Z87.891 Personal history of nicotine dependence
CPT/HCPCS: 36415; 36600; 71045; 80053; 82803; 82947; 83735; 83880; 84145; 85025; 93005; 93010; 94640; 94660; 94664; 94762; 99285-25; A9270; J0572; J7512

== ENCOUNTER 2023-05-13 16:01 | Emergency (ER) | payer OTHER ==
[~2023-05-13] VITALS: Ht 172.7 cm; Wt 89.8 kg
[~2023-05-13 16:01] MED LIST changes: +BUPRENORPHN-NA1 EACH SL; +Prednisone10 MG PO
[2023-05-13 16:31] LABS: BASOPHILS ABSOLUTE AUTO 0.05 K/mm3 (0.00-0.23); BASOPHILS PERCENT AUTO 1 % (0-2); EOSINOPHILS ABSOLUTE AUTO 0.36 K/mm3 (0.00-0.68); EOSINOPHILS PERCENT AUTO 6 % (0-6); Hematocrit 32.2 % (37.0-53.0); Hemoglobin 10.1 g/dL (13.5-17.5); IMMATURE GRAN ABSOLUTE AUTO 0.02 K/mm3 (0.00-0.10); IMMATURE GRAN PERCENT AUTO 0 % (0-1); LYMPHOCYTES ABSOLUTE AUTO 1.15 K/mm3 (0.84-5.20); LYMPHOCYTES PERCENT AUTO 19 % (21-46); MONOCYTES ABSOLUTE AUTO 0.94 K/mm3 (0.16-1.47); MONOCYTES PERCENT AUTO 15 % (4-13); Mean Corpuscular HGB 30.1 pg (26.0-34.0); Mean Corpuscular HGB Conc 31.4 g/dL (31.5-36.5); Mean Corpuscular Volume 96 fL (80-100); NEUTROPHILS ABSOLUTE AUTO 3.58 K/mm3 (1.96-9.15); NEUTROPHILS PERCENT AUTO 59 % (41-73); Platelet Count 114 K/mm3 (150-400); RDW Coefficient Variation 15.9 % (11.7-14.2); RDW Standard Deviation 55.8 fL (35.1-46.3); Red Blood Cell Count 3.35 M/mm3 (4.30-5.90)
[2023-05-13 16:50] LABS: Source, Urine Clean Catch
[2023-05-13 17:04] LABS: Bicarbonate Venous 28.5 mmol/L (24.0-30.0); PCO2 Venous 57.4 mmHg (38-42); pH Blood Venous 7.35 (7.34-7.37)
[2023-05-13 17:04] LABS: Appearance, Urine Clear (Clear); Bilirubin, Urine Neg (Neg); Blood, Urine Neg (Neg); Color, Urine Yellow (P-Yellow); Glucose Qualitative, Urine Neg (Neg); Ketones, Urine Neg (Neg); Leukocyte Esterase, Urine 2+ (Neg); Nitrite, Urine Neg (Neg); Protein, Urine 1+ (Neg); Specific Gravity, Urine 1.015 (1.003-1.022); Urobilinogen, Urine NORM (Normal)
[2023-05-13 17:06] LABS: Albumin, Blood 3.3 g/dL (3.4-5.0); Albumin/Globulin Ratio 1.5 (0.8-1.8); Bun/Creatinine Ratio 16.4 (12.0-20.0); Calcium, Blood 8.6 mg/dL (8.5-10.1); Creatinine, Blood 1.59 mg/dL (0.60-1.20); Globulin, Blood 2.2 g/dL (2.2-4.0); Potassium, Blood 4.1 mmol/L (3.5-5.5); Total Protein, Blood 5.5 g/dL (6.4-8.2)
[2023-05-13 17:11] LABS: Red Blood Cells, Urine Not Seen /hpf (0-2); Squamous Epithelial Cells Rare /hpf (Few)
[2023-05-13 17:12] LABS: Bacteria Many /hpf
[2023-05-13] MEDS ORDERED: ASCO500 PO (17:21)
[2023-05-13] MEDS ORDERED: KETO.5OPSO BOTHEYES (17:24)
[2023-05-13] MEDS ORDERED: Floxin10 ML BOTHEYES (17:26)
[2023-05-13] MEDS ORDERED: PRED FORTE5 ML BOTHEYES (17:28)
[2023-05-13] MEDS ORDERED: SUMA25 PO (17:30)
[2023-05-13] MEDS ORDERED: STIOLTO RESPIMAT4 G1 INH (17:31)
[2023-05-13 19:00] VITALS: BP 115/82
== END 2023-05-13 19:26 | disposition home or self-care (01) ==
LOC: ER 16:01
PROVIDERS: Emergency Medicine
DX: F03.90 Unspecified dementia, unspecified severity, without behavioral disturbance, psychotic disturbance, mood disturbance, and anxiety (principal); J44.9 Chronic obstructive pulmonary disease, unspecified; R44.3 Hallucinations, unspecified; I10 Essential (primary) hypertension; I49.5 Sick sinus syndrome; I48.91 Unspecified atrial fibrillation; Z88.0 Allergy status to penicillin; Z88.4 Allergy status to anesthetic agent; Z79.01 Long term (current) use of anticoagulants; Z79.890 Hormone replacement therapy; Z79.899 Other long term (current) drug therapy; Z99.81 Dependence on supplemental oxygen; Z95.0 Presence of cardiac pacemaker; Z87.891 Personal history of nicotine dependence; Z79.52 Long term (current) use of systemic steroids
CPT/HCPCS: 70450; 71046; 80053; 81001; 82803; 83605; 84484; 85025; 96360; 96361; 99285-25; J7120

== ENCOUNTER 2023-05-24 19:08 | Inpatient (IN) | payer OTHER ==
[~2023-05-24] VITALS: Ht 172.7 cm; Wt 89.5 kg
[~2023-05-24 19:08] MED LIST changes: +ELIQUIS2.5 MG PO; -ELIQUIS5 MG PO; +Floxin10 ML BOTHEYES; +KETO.5OPSO BOTHEYES; +METO25ER PO; +PRED FORTE5 ML BOTHEYES; +SUMA25 PO
[2023-05-24 19:56] LABS: BASOPHILS ABSOLUTE AUTO 0.05 K/mm3 (0.00-0.23); BASOPHILS PERCENT AUTO 1 % (0-2); EOSINOPHILS ABSOLUTE AUTO 0.36 K/mm3 (0.00-0.68); EOSINOPHILS PERCENT AUTO 6 % (0-6); Hematocrit 37.5 % (37.0-53.0); Hemoglobin 11.6 g/dL (13.5-17.5); IMMATURE GRAN ABSOLUTE AUTO 0.04 K/mm3 (0.00-0.10); IMMATURE GRAN PERCENT AUTO 1 % (0-1); LYMPHOCYTES ABSOLUTE AUTO 1.51 K/mm3 (0.84-5.20); LYMPHOCYTES PERCENT AUTO 26 % (21-46); MONOCYTES ABSOLUTE AUTO 1.12 K/mm3 (0.16-1.47); MONOCYTES PERCENT AUTO 19 % (4-13); Mean Corpuscular HGB 30.1 pg (26.0-34.0); Mean Corpuscular HGB Conc 30.9 g/dL (31.5-36.5); Mean Corpuscular Volume 97 fL (80-100); Mean Platelet Volume 10.6 fL (9.1-12.4); NEUTROPHILS ABSOLUTE AUTO 2.82 K/mm3 (1.96-9.15); NEUTROPHILS PERCENT AUTO 48 % (41-73); Platelet Count 155 K/mm3 (150-400); RDW Coefficient Variation 16.1 % (11.7-14.2); RDW Standard Deviation 57.4 fL (35.1-46.3); Red Blood Cell Count 3.86 M/mm3 (4.30-5.90)
[2023-05-24 20:15] LABS: Albumin, Blood 3.5 g/dL (3.4-5.0); Albumin/Globulin Ratio 1.3 (0.8-1.8); Bun/Creatinine Ratio 10.8 (12.0-20.0); Calcium, Blood 8.7 mg/dL (8.5-10.1); Creatinine, Blood 1.57 mg/dL (0.60-1.20); Globulin, Blood 2.7 g/dL (2.2-4.0); Potassium, Blood 4.2 mmol/L (3.5-5.5); Total Protein, Blood 6.2 g/dL (6.4-8.2)
[2023-05-24 20:34] LABS: Source, Urine Clean Catch
[2023-05-24 20:41] LABS: Bilirubin, Urine Neg (Neg); Blood, Urine Neg (Neg); Glucose Qualitative, Urine Neg (Neg); Ketones, Urine Neg (Neg); Leukocyte Esterase, Urine Neg (Neg); Nitrite, Urine Neg (Neg); Protein, Urine Neg (Neg); Specific Gravity, Urine 1.005 (1.003-1.022); Urobilinogen, Urine NORM (Normal)
[2023-05-24 20:48] LABS: Appearance, Urine Clear (Clear); Color, Urine Yellow (P-Yellow)
[2023-05-25] VITALS (7 sets, daily range): BP systolic 85–123; BP diastolic 60–78
[2023-05-25 04:00] LABS: Bun/Creatinine Ratio 11.5 (12.0-20.0); Calcium, Blood 9.2 mg/dL (8.5-10.1); Creatinine, Blood 1.57 mg/dL (0.60-1.20); Potassium, Blood 4.5 mmol/L (3.5-5.5)
--- NOTE | 2023-05-25 06:51 | NUR ---
PT ADMITTED FROM ED AT APPROXIMATELY 0000. PT ABLE TO STAND AND PIVOT FROM WC. , PRIMARY OUTPATIENT SCHEDULER, REPORTS PT IS WC BOUND AT HOME. DENIES ANY DIZZIENESS, SOB, OR CHEST PAIN/PRESSURE. HR IS V-PACED IN THE 40-60'S. BP'S SOFT BUT MAP > 65. A&OX2-3, PLEASANT AND COOPERATIVE, FORGETFUL WHY HE IS HERE BUT USES CALL LIGHT APPROPRAITELY. STANDING AT BEDSIDE TO VOID, URGE INCONTIENCE AT BASELINE. RESTING IN BED FOR MAJORITY OF SHIFT, APPEARS TO BE SLEEPING. BIPAP IN PLACE, REPORTS PT USES BIPAP AT BASELINE. CALL LIGHT IN REACH. BED IN LOW POSITION. BED ALARM ON.
--- NOTE | 2023-05-25 10:25 | NUR ---
DR CORREA TO BEDSIDE, END STAGE PULMONARY DISEASE WAS DISCUSSED WITH PT. PALLIATIVE CARE CONSULT WAS PLACED. PT PARTICIPATES IN CONVERSATION BUT IS CONFUSED AND REPORTS THAT HE DOES NOT UNDERSTAND WHAT IS BEING DISCUSSED. PT OTHERWISE IS RESTING WELL IN BED, NADN. DENIES CP OR SOB. HE REAMINS ON HIS BASELINE O2 VIA NASAL CANNULA. HE TAKES HIS MEDICATIONS WELL WITH WATER AND HOLE. UPON MD ASSESSMENT PT REPORTS ABD PAIN TO PALPATION, WHEN THIS RN PALPATES ABD HE DOES NOT REPORT PAIN OR GAURD, XRAY IN ROOM FOR KUB
--- NOTE | 2023-05-25 17:42 | NUR ---
PT HAD BEGAN TO THE EVENING PROGRESSES, HE WAS MORE CONFUSED AFTER WAKING FROM NAP THIS EVENING. PT IS ABLE TO TAKE MEDICATIONS WITH WATER WITHOUT DIFFICULTY. BLOOD PRESSURES HAVE IMPROVED WITH MIDODRINE. PT'S O2 NEED HAS SLOWLY INCREASED T/O THE DAY HE IS CURRENTLY ON 5L O2 VIA NASAL CANNULA
--- NOTE | 2023-05-25 23:30 | NUR ---
ASSUMED PT CARE FROM VALERIE HOGAN ON . A&OX2-3, FORGETFUL, HX OF DEMENTIA DX. COOPERATIVE AND PLEASANT, USING CALL LIGHT APPROPRIATELY. DENIES FEELING SOB. PLACED ON BIPAP WHILE SLEEPING. MAINTAINING O2 SATS > 90% ON 5 LPM VIA NC. DENIES CHEST PAIN/PRESSURE. V-PACED IN 40-60'S. BP'S SOFT BUT MAP > 65. DENIES DIZZIENESS. TAKES EVENING MEDICATIONS WHOLE WITH WATER WITHOUT DIFFICULTY. LEFT RESTING IN BED. CALL LIGHT IN REACH. BED ALARM ON.
[2023-05-26 04:40] LABS: BASOPHILS ABSOLUTE AUTO 0.04 K/mm3 (0.00-0.23); BASOPHILS PERCENT AUTO 1 % (0-2); EOSINOPHILS ABSOLUTE AUTO 0.22 K/mm3 (0.00-0.68); EOSINOPHILS PERCENT AUTO 4 % (0-6); Hematocrit 35.4 % (37.0-53.0); IMMATURE GRAN ABSOLUTE AUTO 0.03 K/mm3 (0.00-0.10); IMMATURE GRAN PERCENT AUTO 1 % (0-1); LYMPHOCYTES ABSOLUTE AUTO 1.16 K/mm3 (0.84-5.20); LYMPHOCYTES PERCENT AUTO 19 % (21-46); MONOCYTES ABSOLUTE AUTO 1.06 K/mm3 (0.16-1.47); MONOCYTES PERCENT AUTO 17 % (4-13); Mean Corpuscular HGB 29.8 pg (26.0-34.0); Mean Corpuscular HGB Conc 31.1 g/dL (31.5-36.5); Mean Corpuscular Volume 96 fL (80-100); Mean Platelet Volume 10.7 fL (9.1-12.4); NEUTROPHILS ABSOLUTE AUTO 3.69 K/mm3 (1.96-9.15); NEUTROPHILS PERCENT AUTO 60 % (41-73); Platelet Count 142 K/mm3 (150-400); RDW Coefficient Variation 16.3 % (11.7-14.2); Red Blood Cell Count 3.69 M/mm3 (4.30-5.90)
[2023-05-26 04:53] LABS: Albumin, Blood 3.1 g/dL (3.4-5.0); Albumin/Globulin Ratio 1.2 (0.8-1.8); Bilirubin, Total 0.7 mg/dL (0.1-1.0); Bun/Creatinine Ratio 15.7 (12.0-20.0); Calcium, Blood 8.9 mg/dL (8.5-10.1); Creatinine, Blood 1.4 mg/dL (0.60-1.20); Globulin, Blood 2.5 g/dL (2.2-4.0); Total Protein, Blood 5.6 g/dL (6.4-8.2)
[2023-05-26 05:16] VITALS: BP 105/69
--- NOTE | 2023-05-26 05:46 | NUR ---
SHIFT SUMMARY: BP HAS REMAINED STABLE, SBP IN LOW 100'S, MAP > 65. O2 SATS MAINTAINED ON BIPAP WHILE SLEEPING. CALL LIGHT IN REACH. BED ALARM ON. BED IN LOW POSITION.
[2023-05-26 07:28] VITALS: BP 109/73
--- NOTE | 2023-05-26 10:15 | NUR ---
AM NOTES: PT TRASNFERRED TO [id number] WITH ALL BELONGINGS SENT, PT ACCOMPANIED VIA WHEELCHAIR REPORT GIVEN TO VALERIE HOGAN. AT THE BEDSIDE AWARE OF THE TRANSFER AND ALSO WAS ABLE TO DISCUSS PLAN OF CARE WITH DR PANDA AT THE BEDSIDE THIS MORNING PT AND AGREED TO STAY ONE MORE NIGHT DUE TO MEDICATION CHANGES. AND HOPING PT WILL GET UP AND MOVE AROUNF WITH NO ISSUES AT HIS BASELINE. VITALS HRR PACED 50-70'S, SBP >100'S, SATS ABOVE 90% ON 2L OF O2, DESATS TO 88% WITH EXERTION RECOVERS BACK WITH NO ISSUES. AFEBRILE. PT ALERT AND ORIENTED X3, FORGETFUL HX OF DEMENTIA PER . CONDOM CATH REMAINED IN PLACE DRAINING YELLOW URINE. PT HAS SOME LEFT SIDE ABDOMEN PAIN WITH PRESSURE OR TOUCH DR PANDA AWARE FAMILY DECIDED TO KEEP AN EYE ON IT FOR NOW ABD XRAY DIDNT SHOW ANYTHING BEFORE GETTING CT SCAN DONE, SITE LOOKS LIKE POOLING EDEMA 3+, NO REDNESS NOTED. NO OTHER ISSUES REPORTED OTHERWISE.
[2023-05-26 10:25] VITALS: BP 96/69
[2023-05-26 15:48] VITALS: BP 108/75
--- NOTE | 2023-05-26 16:36 | NUR ---
THE PATIENT WAS TRANSFERRED TO THE [facility] FLOOR FROM [facility], THE PATIENT IS A&O X 3, FOLLOWS COMMANDS AND IS PLEASANT TO VISIT WITH. THE PATIENT HAS HYPOTENSION AND IS A STAND BY ASSIST, HAS A CONDOM CATHETER, IS ON TELE AND HAS A PACEMAKER. THE PATIENT'S SPOUSE IS IN THE ROOM WITH THE PATIENT. THE PATIENT IS RESTING AND WATCHING TV AT THIS TIME, I WILL CONTINUE TO MONITOR.
[2023-05-26 21:41] VITALS: BP 113/61
[2023-05-27 04:03] VITALS: BP 91/73
--- NOTE | 2023-05-27 04:34 | NUR ---
SUMMARY- PT A/O X3, MILDLY FORGETFUL/CONFUSED. ORIENTED TO OWN ABILITY, USED CALL LIGHT APPROPRIATELY. DRINKING LOTS OF CLEAR LIQ. USING CONDOM CATH. LUNGS SEVERELY DIM IN BASES. OXYGEN AT 3.5L, SATS MID 90'S. PLACED CPAP ABOUT MIDNIGHT WITH 4L BLEED IN. SATS AROUND 92-94%, TOLERATES CPAP WELL. TELE 70'S PACED- WILL REPORT TO DAY RN
[2023-05-27 07:30] VITALS: BP 95/67
[2023-05-27] MEDS ORDERED: MIDO5 PO (11:35)
--- NOTE | 2023-05-27 12:06 | NUR ---
Met with pt and at the bedside to discuss plan of care. The pt's instantly became tearful. She states [facility] 16 hrs a week, and this will help. I invited pt's Melisa to my office, and we settled there to talk. Melisa states the pt isn't interested in being placed outside the home. Melisa also states they are financially strapped by repairs needed to their home. She also reports feeling very scared that when the pt passes away, she will end up homeless, as her medicare is approx 900 monthly as compared to what the pt is paid. She has not discussed this with anyone at the [facility], she states. She does agree it is likely time for the patient to be placed as he becomes confused and will cut up oxygen tubing, claim to see flying rats, or strip naked and walk out the front door. When we returned to the room, and pt was pleasant. He agrees he wants to be at home, and states he does NOT want to go the hospital anymore. I contacted Emilee Manzanares, Hospice and Palliative care RN at the [facility]. She agrees to take this 's case on for palliation, and will assist with getting social service assistant to assist this family.
--- NOTE | 2023-05-27 12:29 | NUR ---
THE PATIENT WAS DISCHARGED HOME WITH HIS SPOUSE, AFTER DISCHARGE INSTRUCTIONS WERE GIVEN AND HIS IV WAS REMOVED. Patient States Post-Procedure ride home has been arranged. Discharged via wheelchair to private car for ride home.
== END 2023-05-27 12:10 | disposition home health service (06) | DRG 314 ==
LOC: ER 19:08 → PCU 19:09 → MEDS 05-26 10:27 → ENPENDDIS 05-27 10:10 → MEDS 05-27 12:10
PROVIDERS: Hospitalist; Student in an Organized Health Care Education/Training Program; ADMIT Internal Medicine
PROC: 5A09357 Assistance with Respiratory Ventilation, Less than 24 Consecutive Hours, Continuous Positive Airway Pressure (ICD-10-PCS; principal; 2023-05-25)
DX: I95.9 Hypotension, unspecified (principal); G92.8 Other toxic encephalopathy; N17.9 Acute kidney failure, unspecified; I50.30 Unspecified diastolic (congestive) heart failure; I13.0 Hypertensive heart and chronic kidney disease with heart failure and stage 1 through stage 4 chronic kidney disease, or unspecified chronic kidney disease; J96.10 Chronic respiratory failure, unspecified whether with hypoxia or hypercapnia; Z51.5 Encounter for palliative care; Z66 Do not resuscitate; I48.91 Unspecified atrial fibrillation; J44.9 Chronic obstructive pulmonary disease, unspecified; F32.A Depression, unspecified; E03.9 Hypothyroidism, unspecified; G47.33 Obstructive sleep apnea (adult) (pediatric); F03.90 Unspecified dementia, unspecified severity, without behavioral disturbance, psychotic disturbance, mood disturbance, and anxiety; E87.70 Fluid overload, unspecified; N18.30 Chronic kidney disease, stage 3 unspecified; M35.3 Polymyalgia rheumatica; M19.90 Unspecified osteoarthritis, unspecified site; Z96.641 Presence of right artificial hip joint; Z98.890 Other specified postprocedural states; Z87.891 Personal history of nicotine dependence; Z99.3 Dependence on wheelchair; Z79.51 Long term (current) use of inhaled steroids; Z79.01 Long term (current) use of anticoagulants; Z79.52 Long term (current) use of systemic steroids; Z86.79 Personal history of other diseases of the circulatory system; Z95.0 Presence of cardiac pacemaker; Z99.81 Dependence on supplemental oxygen; Z88.0 Allergy status to penicillin; Z88.8 Allergy status to other drugs, medicaments and biological substances; Z79.899 Other long term (current) drug therapy
CPT/HCPCS: 36415; 71045; 74018; 80048; 80053; 81003; 83605; 83880; 84443; 84484; 85025; 93005; 93010; 94640; 94660; 94664; 94762; 96374; 97116; 97162; 99285-25; A9270; G0378; J0572; J1940